=== PATIENT | male | born 1940 | race Caucasian/White ===

== ENCOUNTER → 2016-06-24 | Outpatient (CLI) | payer BC ==
[~2016-06-24] MED LIST: ASPI-435 PO; BRIM0.2S OPB; CHOL100027 PO; ENAL5TAB PO; OMEP20TA PO; PSYL58.69 PO; SIMV40TA4 PO; TRIATAB3 PO; ZOLP10TA PO
[2016-06-24 12:59] LABS: HEMATOCRIT 48.4 % (42-52); MEAN CELL VOLUME 95.1 fL (80-100); MEAN CORPUSCULAR HEMOGLOBIN 31.4 pg (25-34); MEAN CORPUSCULAR HGB CONC 33.1 g/dl (32-36); MEAN PLATELET VOLUME 10.6 fL (7.4-10.4); PLATELET COUNT 193 K/uL (130-400); RED BLOOD COUNT 5.09 M/uL (4.7-6.1); WHITE BLOOD COUNT 7.42 K/uL (4.8-10.8)
[2016-06-24 13:12] LABS: URINE APPEARANCE CLOUDY (CLEAR); URINE BILIRUBIN NEG (NEG); URINE COLOR YELLOW; URINE EPITHELIAL CELL AUTO >30 /lpf (0-5); URINE NITRITE NEG (NEG); URINE SPECIFIC GRAVITY 1.029 (1.000-1.030); UROBILINOGEN NEG (NEG)
[2016-06-24 13:21] LABS: MANUAL MICROSCOPIC REQUIRED? NO; REVIEW REQ? NO
[2016-06-24 13:26] LABS: BLOOD UREA NITROGEN 27 mg/dl (7-18); BUN/CREATININE RATIO 18.3 (10-20); CALCIUM 9.3 mg/dl (8.5-10.1); CARBON DIOXIDE 24 mmol/L (21-32); CHLORIDE 104 mmol/L (98-107); GLUCOSE 108 mg/dl (70-99); SODIUM 138 mmol/L (136-145)
[2016-06-24 13:28] LABS: URINE PROTIEN/CREAT RATIO 0.1 (0-0.2); URINE TOTAL PROTEIN 30.2 mg/dl (0-11.9)
[2016-06-24 13:33] LABS: CHOLESTEROL/HDL RATIO 3.6
== END | disposition home or self-care (01) ==
LOC: C.LABPVFM 07:19
PROVIDERS: ATTEND Family Medicine
DX: E78.5 Hyperlipidemia, unspecified (principal); I12.9 Hypertensive chronic kidney disease with stage 1 through stage 4 chronic kidney disease, or unspecified chronic kidney disease; N18.3 Chronic kidney disease, stage 3 (moderate); E55.9 Vitamin D deficiency, unspecified

== ENCOUNTER → 2016-09-23 | Outpatient (CLI) | payer BC | END | disposition home or self-care (01) | LOC: C.LABPVFM 07:18 | PROVIDERS: ATTEND Urology | DX: R97.20 Elevated prostate specific antigen [PSA] (principal) ==

== ENCOUNTER → 2017-05-19 | Outpatient (CLI) | payer BC ==
[~2017-05-19] MED LIST changes: +BIMA0.01 OPB; +LPT/40 PO; +MXZC25 PO; +PSYL58.636 PO; +ZOLP5TAB PO
[2017-05-19 15:39] LABS: ALBUMIN 3.9 gm/dl (3.4-5.0); ALKALINE PHOSPHATASE 74 U/L (45-117); ALT/SGPT 46 U/L (12-78); AST/SGOT 27 U/L (15-37); BLOOD UREA NITROGEN 26 mg/dl (7-18); CALCIUM 9.4 mg/dl (8.5-10.1); CARBON DIOXIDE 30 mmol/L (21-32); CHOLESTEROL 160 mg/dl (0-200); CREATININE 1.41 mg/dl (0.60-1.40); GLUCOSE 105 mg/dl (70-99); LDL CHOLESTEROL CALCULATED 91 mg/dl; POTASSIUM 4.4 mmol/L (3.5-5.1); SODIUM 136 mmol/L (136-145)
== END | disposition home or self-care (01) ==
LOC: C.LABPVFM 10:06
PROVIDERS: ATTEND Family Medicine
DX: I12.9 Hypertensive chronic kidney disease with stage 1 through stage 4 chronic kidney disease, or unspecified chronic kidney disease (principal); E78.00 Pure hypercholesterolemia, unspecified; N18.2 Chronic kidney disease, stage 2 (mild)

== ENCOUNTER → 2017-07-05 | Outpatient (CLI) | payer BC ==
[~2017-07-05] MED LIST changes: -PSYL58.69 PO; -SIMV40TA4 PO; -TRIATAB3 PO; -ZOLP10TA PO
[2017-07-05 12:23] LABS: HEMATOCRIT 50.2 % (42-52); HEMOGLOBIN 16.2 g/dL (14.0-18.0); MEAN CELL VOLUME 98.4 fL (80-100); MEAN CORPUSCULAR HEMOGLOBIN 31.8 pg (25-34); MEAN CORPUSCULAR HGB CONC 32.3 g/dl (32-36); MEAN PLATELET VOLUME 10.5 fL (7.4-10.4); PLATELET COUNT 210 K/uL (130-400); RED CELL DISTRIBUTION WIDTH CV 14.5 % (11.5-14.5); RED CELL DISTRIBUTION WIDTH SD 52.6 fL (36.4-46.3); WHITE BLOOD COUNT 6.52 K/uL (4.8-10.8)
[2017-07-05 13:34] LABS: ALBUMIN 3.7 gm/dl (3.4-5.0); BLOOD UREA NITROGEN 23 mg/dl (7-18); CALCIUM 9.3 mg/dl (8.5-10.1); CARBON DIOXIDE 27 mmol/L (21-32); CREATININE 1.42 mg/dl (0.60-1.40); GLUCOSE 108 mg/dl (70-99); PHOSPHORUS 2.7 mg/dl (2.5-4.9); POTASSIUM 4.1 mmol/L (3.5-5.1); SODIUM 136 mmol/L (136-145)
== END | disposition home or self-care (01) ==
LOC: C.LABPVFM 07:37
PROVIDERS: ATTEND Internal Medicine Nephrology
DX: I10 Essential (primary) hypertension (principal); N18.3 Chronic kidney disease, stage 3 (moderate); R31.29 Other microscopic hematuria; E55.9 Vitamin D deficiency, unspecified

== ENCOUNTER → 2017-07-13 | Day surgery (SDC) | payer BC ==
[2017-05-31 10:31] VITALS: Ht 179.1 cm; Wt 84.1 kg
[~2017-07-13] VITALS: Ht 179.1 cm; Wt 84.1 kg
[~2017-07-13] MED LIST changes: +500ML BSS 0.3ML EPI 1:1000PF IRRIG ONE; +ACETAMINOPHEN 325 MG TAB PO PRN; +AMVISC PLAIN 0.8ML SYRINGE INT OCU ONE; +AMVISC PLUS 0.8ML SYRINGE INT OCU ONE; +ATROPINE SULFATE 0.1 MG/ML 5ML SYR IV PRN; +BSS FLUSH ONE; +EpHEDrine SULFATE INJ 50 MG/ML AMP IV PRN; +EpINEphrine INJ 1MG/ML AMP 1 MG/ML AMP ONE; +LACTATED RINGER'S 1000ML 500 ML IV SCH; +LIDOCAINE 3.5% OPH GEL PER APPLICATION CHARGE ONE; +LIDOCAINE HCL 1% MPF 2 ML VIAL ONE; +MIDAZOLAM HCL 1 MG/ML 2ML VIAL ONE; +OCUCOAT 1 ML SOLN IO ONE; +ONDANSETRON INJ 2 MG/ML 2 ML VIAL IV PRN; +POVIDONE-IODINE OP SOLN 30 ML BTL ONE; +PROPARACAINE 0.5% OP SOLN PER DROP CHARGE OPL SCH; +TOBRAMYCIN/DEXAMETHASONE OPH OINT PER APPLN CHARGE ONE
[2017-07-13] MEDS: PHENYLEPHRINE HCL 2.5% OP SOLN PER DROP CHARGE OPL SCH ×2 (07:49→07:54)
[2017-07-13] MEDS: TROPICAMIDE 1% OP SOLN PER DROP CHARGE OPL SCH ×2 (07:50→07:55)
[2017-07-13] MEDS: CYCLOPENTOLATE HCL 1% OP SOLN PER DROP CHARGE OPL SCH ×2 (07:51→07:56)
[2017-07-13] MEDS: KETOROLAC 0.5% OP SOLN PER DROP CHARGE OPL SCH ×2 (07:52→07:57)
[2017-07-13] MEDS: GATIFLOXACIN OP SOLN PER DROP CHARGE OPL SCH ×2 (07:53→08:03)
--- NOTE | 2017-07-13 08:24 | History & Physical Bridge - SC ---
H&P Re-Evaluation Bridge Note: I have examined the patient, reviewed the History & Physical and in the interval since the performance of the History & Physical I have noted the following changes of clinical significance: No changes noted
--- NOTE | 2017-07-13 09:02 | [facility] Operative Report ---
Operative Report Date of Service Jul 13, 2017. Operative Report 1. PREOPERATIVE DIAGNOSIS: Cataract of the left eye. 2. POSTOPERATIVE DIAGNOSIS: Same. 3. PROCEDURE: Phacoemulsification with intraocular lens implantation of the left eye. SURGEON: Dr. Oscar Muñiz. ANESTHESIA: Topical Lidocaine gel, 1% Non- Preserved intracameral Lidocaine, and monitored intravenous sedation. INDICATIONS FOR THE PROCEDURE: The patient is a 77 - year-old male with a history of cataract of the left eye causing significant visual impairment. The details of the proposed procedure were explained to the patient who asked appropriate questions and following discussion of all risks, benefits and alternatives agreed to have the procedure done. Patient had corneal astigmatism and therefore elected to have a toric lens placed. 4. OPERATION AND FINDINGS: DESCRIPTION OF PROCEDURE: After informed consent was obtained, the patient was placed in an upright position and the cornea was marked at 173 degrees using the [employer] corneal marking tool. The patient was brought to the Operating Room at the [facility]. The patient was placed in a supine position and then the left eye was prepped and draped in the usual sterile fashion for intraocular surgery. A drop of topical Lidocaine gel was placed in the operative eye. A wire lid speculum was then placed in the fornices. A corneal paracentesis was then created temporally. The Non-Preserved Lidocaine was then instilled into the anterior chamber. The anterior chamber was then pressurized with viscoelastic. A 2.0 mm clear corneal incision was then created temporally. A cystotome was inserted into the anterior chamber and used to create a tear in the anterior lens capsule. This capsular tear was then used to create a small flap and the flap was dragged in a counterclockwise direction in order to create a continuous curvilinear capsulorrhexis. Hydrodissection was accomplished with balanced salt solution. Phacoemulsification of the lens nucleus was then performed in a standard divide- and-conquer technique. The phaco time was 17 seconds with an average power of 10 %. The remaining cortical material was removed using irrigation aspiration. The capsular bag was then filled with viscoelastic. A Renzo [id number] +13.5 diopters lens was then loaded into the injector and injected into the capsular bag. The lens was aligned with the previously made corneal meng. The remaining viscoelastic was removed with the irrigation aspiration handpiece. The wound was hydrated and then checked and found to be watertight. The intraocular pressure was checked and found to be adequate. The wire lid speculum was removed and the patient's face was cleaned and dried. TobraDex ointment was placed in the inferior fornix. The patient was discharged to the Recovery Room having tolerated the procedure well. There were no complications. The patient will be seen tomorrow in the office for follow-up. I attest to the content of the Intraoperative Record and any orders documented therein. Any exceptions are noted below.
--- NOTE | 2017-07-13 09:03 | Discharge Instructions-SurgCtr ---
Discharge Instructions Date of Service Jul 13, 2017. Visit Reason for Visit: Cataract Left Eye Discharge Discharge Diagnosis / Problem: cataract Discharge Goals Goal(s): Improve function Activity Recommendations Activity Limitations: per Instructions/Follow-up section Anesthesia . Post Anesthesia Instructions: If you have had General Anesthesia or IV Sedation: * Do not drive today. * Resume driving when surgeon permits. * Do not make important decisions or sign legal documents today. * Call surgeon for: 1. Temperature elevations greater than 101 degrees F. 2. Uncontrollable pain. 3. Excessive bleeding. 4. Persistent nausea and vomiting. 5. Medication intolerance (nausea, vomiting or rash). * For nausea and vomiting use only clear liquids such as: tea, soda, bouillon until nausea subsides, then gradually increase diet as tolerated. * If you have any concerns or questions, call your surgeon's office. If physician is unavailable and it is an emergency, call 911 or go to the nearest emergency room. . Diet Recommendations Home Diet: resume previous diet Procedures Procedures Performed: Left Cataract Phacoemulsification With Intraocular Lens Implant Pending Studies Studies pending at discharge: no Medical Emergencies . Who to Call and When: Medical Emergencies: If at any time you feel your situation is an emergency, please call 911 immediately. . Non-Emergent Contact Non-Emergency issues call your: Mix Technician . . "Provider Documentation" section prepared by Oscar Muñiz. .
[2017-07-13 09:05] VITALS: TEMP 36.8
[2017-07-13 09:23] VITALS: BP 129/69; PULSE 55; O2SAT 94
--- NOTE | 2017-07-13 09:23 | Anesthesia Progress Nt - [facility] ---
Anesthesia Post Op Note Date & Time Jul 13, 2017 at 09:23 Vital Signs Pain Intensity: 0 Vital Signs Past 12 Hours Date Time Temp Pulse Resp B/P (MAP) Pulse Ox O2 Delivery O2 Flow Rate FiO2 07/13/17 09:05 36.8 45 14 144/68 (93) 96 Room Air 07/13/17 07:40 37.0 48 22 159/84 (109) 97 Room Air Notes Mental Status: alert / awake / arousable, participated in evaluation Pt Amnestic to Procedure: Yes Nausea / Vomiting: adequately controlled Pain: adequately controlled Airway Patency, RR, SpO2: stable & adequate BP & HR: stable & adequate Hydration State: stable & adequate Anesthetic Complications: no major complications apparent
== END | disposition home or self-care (01) ==
LOC: X.SURG 07:13
PROVIDERS: ATTEND Ophthalmology
DX: H26.9 Unspecified cataract (principal); K21.9 Gastro-esophageal reflux disease without esophagitis; G47.30 Sleep apnea, unspecified; Z88.2 Allergy status to sulfonamides; Z88.0 Allergy status to penicillin

== ENCOUNTER → 2017-07-27 | Day surgery (SDC) | payer BC ==
[2017-07-20 11:07] VITALS: Ht 179.1 cm; Wt 84.1 kg
[~2017-07-27] VITALS: Ht 179.1 cm; Wt 84.1 kg
[~2017-07-27] MED LIST changes: -ONDANSETRON INJ 2 MG/ML 2 ML VIAL IV PRN; -PROPARACAINE 0.5% OP SOLN PER DROP CHARGE OPL SCH; +PROPARACAINE 0.5% OP SOLN PER DROP CHARGE OPR SCH
[2017-07-27] MEDS: PHENYLEPHRINE HCL 2.5% OP SOLN PER DROP CHARGE OPR SCH ×2 (10:30→10:35)
[2017-07-27] MEDS: TROPICAMIDE 1% OP SOLN PER DROP CHARGE OPR SCH ×2 (10:31→10:36)
[2017-07-27] MEDS: CYCLOPENTOLATE HCL 1% OP SOLN PER DROP CHARGE OPR SCH ×2 (10:32→10:37)
[2017-07-27] MEDS: KETOROLAC 0.5% OP SOLN PER DROP CHARGE OPR SCH ×2 (10:33→10:38)
[2017-07-27] MEDS: GATIFLOXACIN OP SOLN PER DROP CHARGE OPR SCH ×2 (10:34→10:44)
--- NOTE | 2017-07-27 11:29 | [facility] Operative Report ---
Operative Report Date of Service Jul 27, 2017. Operative Report 1. PREOPERATIVE DIAGNOSIS: Cataract of the right eye. 2. POSTOPERATIVE DIAGNOSIS: Same. 3. PROCEDURE: Phacoemulsification with intraocular lens implantation of the right eye. SURGEON: Dr. Oscar Muñiz. ANESTHESIA: Topical Lidocaine gel, 1% Non- Preserved intracameral Lidocaine, and monitored intravenous sedation. INDICATIONS FOR THE PROCEDURE: The patient is a 77 - year-old male with a history of cataract of the right eye causing significant visual impairment. The details of the proposed procedure were explained to the patient who asked appropriate questions and following discussion of all risks, benefits and alternatives agreed to have the procedure done. Patient had corneal astigmatism and therefore elected to have a toric lens placed. 4. OPERATION AND FINDINGS: DESCRIPTION OF PROCEDURE: After informed consent was obtained, the patient was placed in an upright position and the cornea was marked at 003 degrees using the [employer] corneal marking tool. The patient was brought to the Operating Room at the [facility]. The patient was placed in a supine position and then the right eye was prepped and draped in the usual sterile fashion for intraocular surgery. A drop of topical Lidocaine gel was placed in the operative eye. A wire lid speculum was then placed in the fornices. A corneal paracentesis was then created temporally. The Non-Preserved Lidocaine was then instilled into the anterior chamber. The anterior chamber was then pressurized with viscoelastic. A 2.0 mm clear corneal incision was then created temporally. A cystotome was inserted into the anterior chamber and used to create a tear in the anterior lens capsule. This capsular tear was then used to create a small flap and the flap was dragged in a counterclockwise direction in order to create a continuous curvilinear capsulorrhexis. Hydrodissection was accomplished with balanced salt solution. Phacoemulsification of the lens nucleus was then performed in a standard divide- and-conquer technique. The phaco time was 20 seconds with an average power of 12 %. The remaining cortical material was removed using irrigation aspiration. The capsular bag was then filled with viscoelastic. A Renzo [id number] +13.5 diopters lens was then loaded into the injector and injected into the capsular bag. The remaining viscoelastic was removed with the irrigation aspiration handpiece. The lens was aligned with the previously made corneal meng. The wound was hydrated and then checked and found to be watertight. The intraocular pressure was checked and found to be adequate. The wire lid speculum was removed and the patient's face was cleaned and dried. TobraDex ointment was placed in the inferior fornix. The patient was discharged to the Recovery Room having tolerated the procedure well. There were no complications. The patient will be seen tomorrow in the office for follow-up. I attest to the content of the Intraoperative Record and any orders documented therein. Any exceptions are noted below.
--- NOTE | 2017-07-27 11:30 | Discharge Instructions-SurgCtr ---
Discharge Instructions Date of Service Jul 27, 2017. Visit Reason for Visit: Cataract Right Eye Discharge Discharge Diagnosis / Problem: cataract Discharge Goals Goal(s): Improve function Activity Recommendations Activity Limitations: per Instructions/Follow-up section Anesthesia . Post Anesthesia Instructions: If you have had General Anesthesia or IV Sedation: * Do not drive today. * Resume driving when surgeon permits. * Do not make important decisions or sign legal documents today. * Call surgeon for: 1. Temperature elevations greater than 101 degrees F. 2. Uncontrollable pain. 3. Excessive bleeding. 4. Persistent nausea and vomiting. 5. Medication intolerance (nausea, vomiting or rash). * For nausea and vomiting use only clear liquids such as: tea, soda, bouillon until nausea subsides, then gradually increase diet as tolerated. * If you have any concerns or questions, call your surgeon's office. If physician is unavailable and it is an emergency, call 911 or go to the nearest emergency room. . Diet Recommendations Home Diet: resume previous diet Procedures Procedures Performed: Right Cataract Phacoemulsification With Intraocular Lens Implant; Toric Lens Pending Studies Studies pending at discharge: no Medical Emergencies . Who to Call and When: Medical Emergencies: If at any time you feel your situation is an emergency, please call 911 immediately. . Non-Emergent Contact Non-Emergency issues call your: Phlebotomy Director . . "Provider Documentation" section prepared by Oscar Muñiz. .
[2017-07-27 11:32] VITALS: TEMP 36.8
--- NOTE | 2017-07-27 11:43 | Anesthesia Progress Nt - [facility] ---
Anesthesia Post Op Note Date & Time Jul 27, 2017 at 11:42 Vital Signs Vital Signs Past 12 Hours Date Time Temp Pulse Resp B/P (MAP) Pulse Ox O2 Delivery O2 Flow Rate FiO2 07/27/17 11:32 36.8 59 16 144/69 (94) 95 Room Air 07/27/17 10:40 168/64 (98) 07/27/17 10:21 36.6 51 20 181/88 (119) 95 Room Air Notes Mental Status: alert / awake / arousable, participated in evaluation Pt Amnestic to Procedure: Yes Nausea / Vomiting: adequately controlled Pain: adequately controlled Airway Patency, RR, SpO2: stable & adequate BP & HR: stable & adequate Hydration State: stable & adequate Anesthetic Complications: no major complications apparent
[2017-07-27 11:56] VITALS: BP 150/73; PULSE 48; O2SAT 98
== END | disposition home or self-care (01) ==
LOC: X.SURG 09:45
PROVIDERS: ATTEND Ophthalmology
DX: H26.9 Unspecified cataract (principal); I10 Essential (primary) hypertension; E78.00 Pure hypercholesterolemia, unspecified; E78.5 Hyperlipidemia, unspecified; G47.33 Obstructive sleep apnea (adult) (pediatric); K21.9 Gastro-esophageal reflux disease without esophagitis; N18.3 Chronic kidney disease, stage 3 (moderate); N40.0 Benign prostatic hyperplasia without lower urinary tract symptoms; Z88.2 Allergy status to sulfonamides; Z79.82 Long term (current) use of aspirin

== ENCOUNTER → 2017-08-19 | Outpatient (CLI) | payer BC ==
[~2017-08-19] MED LIST changes: -500ML BSS 0.3ML EPI 1:1000PF IRRIG ONE; -ACETAMINOPHEN 325 MG TAB PO PRN; -AMVISC PLAIN 0.8ML SYRINGE INT OCU ONE; -AMVISC PLUS 0.8ML SYRINGE INT OCU ONE; -ATROPINE SULFATE 0.1 MG/ML 5ML SYR IV PRN; -BSS FLUSH ONE; -EpHEDrine SULFATE INJ 50 MG/ML AMP IV PRN; -EpINEphrine INJ 1MG/ML AMP 1 MG/ML AMP ONE; -LACTATED RINGER'S 1000ML 500 ML IV SCH; -LIDOCAINE 3.5% OPH GEL PER APPLICATION CHARGE ONE; -LIDOCAINE HCL 1% MPF 2 ML VIAL ONE; -MIDAZOLAM HCL 1 MG/ML 2ML VIAL ONE; -OCUCOAT 1 ML SOLN IO ONE; -POVIDONE-IODINE OP SOLN 30 ML BTL ONE; -PROPARACAINE 0.5% OP SOLN PER DROP CHARGE OPR SCH; -TOBRAMYCIN/DEXAMETHASONE OPH OINT PER APPLN CHARGE ONE
== END | disposition home or self-care (01) ==
LOC: C.LAB1850 09:41
PROVIDERS: ATTEND Physician Assistant
DX: G25.81 Restless legs syndrome (principal)

== ENCOUNTER → 2017-08-20 | Outpatient (CLI) | payer BC ==
[2017-08-20 17:38] LABS: BASO % 0.4 %; BASO ABS # 0.03 K/uL (0-0.2); EOS % 2.3 %; EOS ABS # 0.16 K/uL (0-0.5); HEMOGLOBIN 16.5 g/dL (14.0-18.0); IG# 0.02 K/uL (0.00-0.02); LYMPH % 31.6 %; LYMPH ABS # 2.19 K/uL (1.2-3.4); MEAN CELL VOLUME 96.5 fL (80-100); MEAN CORPUSCULAR HEMOGLOBIN 32.5 pg (25-34); MEAN CORPUSCULAR HGB CONC 33.7 g/dl (32-36); MEAN PLATELET VOLUME 10.3 fL (7.4-10.4); MONO % 10.5 %; MONO ABS # 0.73 K/uL (0.11-0.59); NEUT % 54.9 %; NEUT ABS # 3.81 K/uL (1.4-6.5); PLATELET COUNT 228 K/uL (130-400); RED CELL DISTRIBUTION WIDTH CV 14.6 % (11.5-14.5); RED CELL DISTRIBUTION WIDTH SD 51.9 fL (36.4-46.3); WHITE BLOOD COUNT 6.94 K/uL (4.8-10.8)
[2017-08-20 18:14] LABS: ALBUMIN 3.9 gm/dl (3.4-5.0); ALT/SGPT 42 U/L (12-78); AST/SGOT 27 U/L (15-37); BLOOD UREA NITROGEN 24 mg/dl (7-18); CALCIUM 9.5 mg/dl (8.5-10.1); CARBON DIOXIDE 26 mmol/L (21-32); CREATININE 1.39 mg/dl (0.60-1.40); GLUCOSE 94 mg/dl (70-99); POTASSIUM 4.4 mmol/L (3.5-5.1); SODIUM 134 mmol/L (136-145)
[2017-08-20 18:20] LABS: ALKALINE PHOSPHATASE 70 U/L (45-117); TOTAL PROTEIN 7.8 gm/dl (6.4-8.2); TRANSFERRIN 232 mg/dl (200-360)
== END | disposition home or self-care (01) ==
LOC: C.LABPVFM 13:52
PROVIDERS: ATTEND Family Medicine
DX: R79.89 Other specified abnormal findings of blood chemistry (principal)

== ENCOUNTER → 2017-08-30 | Outpatient (CLI) | payer BC | END | disposition home or self-care (01) | LOC: C.LABPVFM 09:00 | PROVIDERS: ATTEND Family Medicine | DX: R79.89 Other specified abnormal findings of blood chemistry (principal) ==

== ENCOUNTER → 2017-09-14 | Outpatient (CLI) | payer BC ==
--- NOTE | 2017-09-14 07:49 | DIAGNOSTIC IMAGING REPORT ---
ABDOMINAL ULTRASOUND, RIGHT UPPER QUADRANT HISTORY: Elevated ferritin. COMPARISON: Abdominal ultrasound September 17, 2011 and renal ultrasound March 28, 2013. FINDINGS: Liver morphology is normal. The liver is not cirrhotic by sonography. No hepatic lesions are identified although sensitivity is diminished due to suboptimal penetration. The gallbladder is not visualized and may be surgically absent. There is no biliary ductal dilatation. The pancreas is largely secured by overlying bowel gas. IMPRESSION: 1. Normal liver morphology without sonographic evidence of cirrhosis. 2. Nonvisualization of the gallbladder, possibly surgically absent. No biliary ductal dilatation. 3. Largely obscured pancreas. Electronically signed by: Marcelino Regan M.D. 09/14/2017 7:48 AM Dictated Date/Time: 09/14/2017 7:45 AM
== END | disposition home or self-care (01) ==
LOC: C.ULTR 07:21
PROVIDERS: ATTEND Internal Medicine Hematology & Oncology
DX: R77.8 Other specified abnormalities of plasma proteins (principal); R10.11 Right upper quadrant pain

== ENCOUNTER → 2017-09-23 | Outpatient (CLI) | payer BC ==
[2017-09-23 13:00] LABS: ALBUMIN 3.6 gm/dl (3.4-5.0); ALT/SGPT 51 U/L (12-78); AST/SGOT 39 U/L (15-37); BLOOD UREA NITROGEN 20 mg/dl (7-18); CALCIUM 8.7 mg/dl (8.5-10.1); CARBON DIOXIDE 28 mmol/L (21-32); CREATININE 1.38 mg/dl (0.60-1.40); GLUCOSE 116 mg/dl (70-99); POTASSIUM 4.2 mmol/L (3.5-5.1); SODIUM 140 mmol/L (136-145)
[2017-09-23 13:03] LABS: ALKALINE PHOSPHATASE 71 U/L (45-117); CHOLESTEROL 133 mg/dl (0-200); LDL CHOLESTEROL CALCULATED 73 mg/dl; TOTAL PROTEIN 7.4 gm/dl (6.4-8.2)
== END | disposition home or self-care (01) ==
LOC: C.LABPVFM 07:37
PROVIDERS: ATTEND Family Medicine
DX: N40.0 Benign prostatic hyperplasia without lower urinary tract symptoms (principal); I10 Essential (primary) hypertension; E78.00 Pure hypercholesterolemia, unspecified

== ENCOUNTER → 2017-10-03 | Outpatient (CLI) | payer BC ==
--- NOTE | 2017-10-04 05:45 | PAP/PSG TECHNICIAN REPORT ---
[facility] Leaf Sticker Polysomnogram Report Study name: None Report date: 10/04/2017 Study date: 10/03/2017 Referring Physician: Chel Regan PA-C Name: CISCO CASTRO Interpreting Physician: Herbie Pathak D.O. Date of : 1940 Leaf Sticker: Beth Laguna [facility]. Sex: Male Age: 77 StudyType: PSG PAP Weight: 195 lbs Height: 77 years, Height 5' 11" BMI: 27.19 Medications: Omeprazole 20 mg, Combigan 0.2-0.5%, Lumigan, Aspirin 81 mg, Atorvastatin Calcium 40 mg, Enalapril Maleate 5 mg, Triamterene-HCTZ 37.5-25 mg, Zolpidem 5 mg, Metamucil, Vitamin D Patient History 77 yr. old male here for a CPAP titration study. Patient is in the need of a new unit. His last study was done on over 6 years ago. Parameters Monitored NPSG: E1-M2, E2-M1, Fp1-M2, Fp2-M1, F3-M2, F4-M2, F4-M1, C3-M2, C4-M2, C4-M1, O1-M2, O2-M2, O2-M1, T3-M2, T4-M1, P3-M2, P4-M1, CHIN1, CHIN2, HR, EKG, Legs, PFLOW, SNOR, FLOW, CFLOW, Tidal Volume, THOR, ABDO, SpO2, PLTH, CPRESS, ETCO2 Wave, ETCO2, pH Sleep Architecture Sleep Stages Time at Lights Off 10:02:24 PM STAGES Time (min.) TST (%) Time at Lights On 5:41:24 AM Wake 76.0 -- Total Recording Time (TRT) 459.50 min. N1 41.5 11 Total Sleep Period (TSP) 439.0 min. N2 238.5 62 Total Sleep Time (TST) 382.5min. N3 20.0 5 Awake Time 76.0 min. REM 82.5 22 Wake after Sleep Onset 56.5 min. Sleep Efficiency (SE) 83 % Sleep Onset Latency (MARIAELENA) 20.0 min. Number of Stage 1 Shifts None Awakenings 24 Stage Changes 140 Number of REM periods 13 REM 82.5 22 REM Latency 84.5 min. NREM 300.0 78 Body Position Analysis Supine Right Left Side Prone Vertical Total Sleep Time (min.) 66.5 76.6 260.5 337.14 0.0 0.0 Total Sleep Time (%) 12% 20% 68% 88 0% N/A% Total Sleep Time REM (min.) 1.0 17.5 64.0 None 0.0 0.0 Total Sleep Time NREM (min.) 44.4 59.1 196.5 None 0.0 0.0 Intermittent Wake (min.) 21.1 10.0 44.8 None 0.0 0.0 Total Sleep Period (%) 11% None None None None None Arousals Myoclonus (PLM) * Events Count Index Events Count Index Spontaneous 13 2 Events Awake (PLMW) 46 36.3 Respiratory 13 2.0 Events Asleep w/ Arousal (PLMA) 18 2.8 PLM 17 3 Events Asleep w/o Arousal (PLMS) 30 4.7 Snoring 15 2 Total Asleep 48 7.5 Total 57 9 Total 94 12 Respiratory Analysis * CA OA MA CH H RERA Total Count 0 8 0 0 29 2 37 Index 0.0 1.3 0.0 0 4.5 0 6.1 Mean Duration 0.0 16.5 0.0 0.00 32.7 32.8 29.4 Longest Duration 0.0 30.1 0.0 0.00 0.0 47.6 76.0 Respiratory Event Summary Total Supine ~Supine Right Left Prone REM NREM Apneas Count 8 8 0 0 0 N/A 0 8 Index 1.3 11 0 0.0 0.0 N/A 0 2 Hypopneas (4% Desat) Count 29 14 15 0 15 N/A 7 22 Index 4.5 18.5 3 0.0 3.5 N/A 5.1 4.4 Apneas & All Hypopneas Count 37 22 15 0 15 N/A 7 30 Index 5.8 29 3 0 3 N/A 5.1 6.0 Respiratory Events (Extension Course Counselor+All Hyp+RERA) Count 37 22 17 0 17 N/A 7 30 Index 6.1 29 3 0.0 3.9 N/A 5.1 6.4 Respiratory Related Arousal Count 13 22 4 0 4 N/A 0 13 Index 2.0 12 1 0 1 N/A 0 3 Snoring Analysis Supine Right Left Prone REM NREM Total Snore duration 13.7 min Snores count 57 31 638 N/A 9 717 726 Snore mean duration 1.1 Sec Snores index 75 24 147 N/A 6.5 143.4 113.9 TST with snoring (%) 3.6% Desaturation Event Summary: Minimum %SpO2 Event Count Mean/Min/Max Duration(sec.) Desaturation Index % Time In Bed > 90 29 33.8 / 10.5 / 60.0 5.4 70.9 86 - 90 9 19.0 / 10.5 / 31.3 4.1 29.1 81 - 85 0 N/A 0.0 0.0 76 - 80 0 N/A 0.0 0.0 71 - 75 0 N/A 0.0 0.0 66 - 70 0 N/A 0.0 0.0 61 - 65 0 N/A 0.0 0.0 56 - 60 0 N/A 0.0 0.0 51 - 55 0 N/A 0.0 0.0 < 50 0 N/A 0.0 0.0 Total REM NREM Awake <50% 0.0 min. 0.0 min. 0.0 min. 0.0 min. 51 - 60% 0.0 min. 0.0 min. 0.0 min. 0.0 min. 61 - 70% 0.0 min. 0.0 min. 0.0 min. 0.0 min. 71 - 80% 0.0 min. 0.0 min. 0.0 min. 0.0 min. 81 - 90% 131.1 min. 24.6 min. 81.3 min. 25.2 min. 91 - 100% 319.3 min. 57.9 min. 216.2 min. 45.2 min. Average 91 91 91 91 Minimum SpO2 83 86 86 83 Desaturation Event Index 3.9 2.9 4.2 3.9 # Desat. Events below 89% 10 1 8 1 Time(%) with Saturation below 89% 2.5 0.3 1.7 0.5 Time(min.) with Saturation below 89% 11.5 1.5 7.5 2.4 Time (mins) REM (mins) NREM (mins) % of TST SpO2 Below 90% 22 4 N18 9.1 SpO2 Below 88% 3 0 0 0 Heart Rate Analysis Min (bpm) Max (bpm) Average (bpm) Awake 37 180 52 NREM 33 127 41 REM 30 57 41 Overall 30 127 41 Supplemental O2 Values Minimum O2 level: None Value Start Time End Time Leaf Sticker Comments Mr. Castro slept in the right, left, and supine positions. Cardiac arrhythmia and bradycardia along with PLMs noted. No bruxism noted. CPAP was initiated at +5 CMH2O room air and up-titrated to a level of +[id number] Cflex 1. Mr. Castro used his own ResMed Quattro FX full face mask during titration. Mr. Castro awoke to use the restroom once during the night. Mr. Castro stated, that was a fairly normal night. The final report will be interpreted and signed by a sleep physician. The completed physician report will then be placed in the patient medical record. Therapy Event: Therapy (cm H20) 5 6 7 8 9 10 11 12 Total Time at Pressure (min.) 29.5 14.1 25.3 82.0 59.2 138.4 75.2 34.6 TST at Pressure (min.) 9.7 10.1 25.3 67.5 33.2 130.9 72.7 33.1 # Periods 1 1 1 1 1 1 1 1 Sleep Onset (min.) 19.8 0.0 0.0 0.0 0.0 0.0 0.0 0.0 REM Onset (min.) N/A N/A N/A 35.4 25.4 33.2 21.3 0.0 Sleep Efficiency % 32 71 100 82 56 94 96 95 Wakefulness (%) 67.1 28.4 0.0 17.7 43.9 5.4 3.3 4.3 Wakefulness (min.) 19.8 4.0 0.0 14.5 26.0 7.5 2.5 1.5 NREM 1 (%) 8.5 9.2 4.8 14.6 7.2 9.2 8.0 4.3 NREM 1 (min.) 2.5 1.3 1.2 12.0 4.3 12.7 6.0 1.5 NREM 2 (%) 24.4 62.5 95.2 67.1 37.0 51.4 39.0 60.6 NREM 2 (min.) 7.2 8.8 24.1 55.0 21.9 71.2 29.3 21.0 NREM 3 (%) 0.0 0.0 0.0 0.0 2.5 11.2 3.3 1.4 NREM 3 (min.) 0.0 0.0 0.0 0.0 1.5 15.5 2.5 0.5 REM (%) 0.0 0.0 0.0 0.6 9.3 22.8 46.4 29.2 REM (min.) 0.0 0.0 0.0 0.5 5.5 31.5 34.9 10.1 # Arousals 3 3 6 11 6 14 11 3 Arousal Index 18.6 17.8 14.2 9.8 10.9 6.4 9.1 5.4 # Snore 13 32 123 317 206 22 13 0 Snore Index 80.5 190.0 291.9 281.6 372.7 10.1 10.7 0.0 AHI 24.8 71.2 2.4 0.0 18.1 2.3 4.1 0.0 AHI Supine 24.8 77.3 N/A N/A N/A 63.4 5.3 N/A AHI Non-Supine N/A 0.0 2.4 0.0 18.1 0.5 3.6 0.0 NREM AHI 24.8 71.2 2.4 0.0 15.2 2.4 3.2 0.0 REM AHI N/A N/A N/A 0.0 32.7 1.9 5.2 0.0 RDI 24.8 71.2 4.7 0.9 18.1 2.3 4.1 0.0 # Obstructive 3 3 0 0 0 2 0 0 # Central Ap 0 0 0 0 0 0 0 0 # Mixed 0 0 0 0 0 0 0 0 # Hypopneas 1 9 1 0 10 3 5 0 RERAS 0 0 1 1 0 0 0 0 Total Respiratory Events 4 12 2 1 10 5 5 0 Time Below SpO2 89.00% (min.) 3.2 2.1 1.8 0.5 1.1 0.4 0.0 0.0 Mean NREM SpO2 (%) 89 90 90 91 92 92 92 91 Mean REM SpO2 (%) N/A N/A N/A 91 92 91 91 Mean Sleep SpO2 (%) 89 90 90 91 92 92 92 91 Min NREM SpO2 (%) 86 87 87 88 89 88 89 90 Min REM SpO2 (%) N/A N/A N/A 89 86 88 89 89 Position Supine (min.) 9.7 9.3 0.0 0.0 0.0 3.8 22.6 0.0 Position Non-supine (min.) 0.0 0.8 25.3 67.5 33.2 127.1 50.1 33.1 LM Index Sleep 0.0 5.9 2.4 6.2 14.5 7.8 8.3 7.2 LM Index NREM 0.0 5.9 2.4 6.3 15.2 6.0 11.1 2.6 LM Index REM N/A N/A N/A 0.0 10.9 13.3 5.2 17.8 Mean Heart Rate (bpm) 46 44 43 41 40 41 41 41 Min Heart Rate (bpm) 43 41 40 36 33 30 36 36
--- NOTE | 2017-10-07 21:47 | POLYSOMNOGRAPH REPORT ---
CLINICAL DATA: The patient is a 77-year-old male who has been on CPAP. He reportedly needs a new CPAP machine, and his insurance required a new CPAP titration study. His BMI is 27.19. SLEEP ARCHITECTURE: The total sleep period was 439 minutes. The total sleep time was 382.5 minutes. The sleep efficiency was mildly reduced to 83%. The sleep latency was 20 minutes. Wake after sleep onset was elevated at 56.5 minutes. The REM latency was normal at 84.5 minutes. There were 3 REM periods during the night. Sleep consisted of stage N1 of 11%, stage N2 of 62%, stage N3 of 5%, stage REM 22%. AROUSAL DATA: The patient had a total of 57 arousals including 13 spontaneous arousals, 13 respiratory arousals, 17 PLM arousals, and 15 snoring arousals. The arousal index was 9. PLM DATA: The patient had 48 periodic limb movements of sleep for a PLM index of 7.5. There were 18 arousals associated with limb movements for a PLM arousal index of 2.8. EKG: The underlying cardiac rhythm was sinus bradycardia. The cardiac rates ranged from 30 to 57 beats per minute. The average heart rate was 41 beats per minute. He did have 2 very brief episodes of 4 beat runs of SVT. The first occurred at 11:39 p.m. during EPOCH 320. The second occurred during EPOCH 928. RESPIRATORY DATA: The patient's nocturnal events were treated with nasal CPAP. He had a total of 37 respiratory events including 8 obstructive apneas, 29 hypopneas, and 2 RERAs. The longest apnea was 30.1 seconds. The mean duration of hypopneas was 32.7 seconds. The apnea/hypopnea index was 5.8 events per hour. At the final pressure of 12 cm, his apnea/hypopnea index was 0. OXIMETRY DATA: The average saturation for the night was 91%. The minimum recorded saturation was 83%, but this was technical in nature. He appears to have very little time with saturations less than 89%, and the minimum is likely 88%. There was a total of 11.5 minutes with saturations less than 89%, but this includes artifactual time when the saturation was not adequately recording. INTEGRATED SPECIALIST COMMENTS: Mr. Castro slept in the right, left, and supine positions. Cardiac arrhythmia and bradycardia along with PLMs noted. No bruxism noted. CPAP was initiated at 5 cm and up titrated to a level of 12 cm with C-Flex 1. The patient used his own ResMed Quattro FX full face mask during titration. He awakened to use the restroom 1 time during the night. He stated that it was a fairly normal night. IMPRESSION: Obstructive sleep apnea, resolved with nasal CPAP at 12 cm. RECOMMENDATIONS: 1. It is advised that the patient's CPAP be set at 12 cm with C-Flex 1. 2. Compliance data should be obtained in 1-2 months for a routine followup. 3. If possible, the patient should avoid sleeping in the supine position. 4. He had minor arrhythmia noted. Advise clinical correlation.
== END | disposition home or self-care (01) ==
LOC: C.NEUR 21:00
PROVIDERS: ATTEND Physician Assistant
DX: G47.30 Sleep apnea, unspecified (principal); G25.81 Restless legs syndrome; G47.00 Insomnia, unspecified; Z79.899 Other long term (current) drug therapy

== ENCOUNTER 2024-07-25 21:51 | Inpatient (IN) ==
[2024-07-25] MEDS: SODIUM CHLORIDE 0.9% 1,000 ML IV ONE (22:57)
[2024-07-25 23:00] LABS: Basophils # (auto) 0.04 K/uL (0.00-0.20); Basophils % (auto) 0.3 %; Eosinophils # (auto) 0.01 K/uL (0.00-0.50); Eosinophils % (auto) 0.1 %; Hematocrit (blood only) 48.2 % (42.0-52.0); Hemoglobin 16.3 g/dl (14.0-18.0); Immature Granulocytes # (auto) 0.04 K/uL (0.01-0.20); Immature Granulocytes % (auto) 0.3 %; Lymphocytes % (auto) 9.3 %; Mean Corpuscular Hemoglobin 31.2 pg (25.0-34.0); Mean Corpuscular Hgb Conc 33.8 g/dL (32.0-36.0); Mean Corpuscular Volume 92.2 fL (80.0-100.0); Mean Platelet Volume 10.3 fL (9.4-12.4); Monocytes # (auto) 1.15 K/uL (0.11-0.59); Monocytes % (auto) 8.3 %; Neutrophils # (auto) 11.38 K/uL (1.40-6.50); Neutrophils % (auto) 81.7 %; Platelet Count 256 K/uL (130-400); RDW Coefficient of Variation 14.2 % (11.5-14.5); RDW Standard Deviation 47.2 fL (36.4-46.3); Red Blood Count 5.23 M/uL (4.70-6.10); White Blood Count 13.92 K/ul (4.8-10.8)
[2024-07-25 23:08] LABS: Base Excess VBG 4.3 mEq/L; HCO3 VBG 30 mmol/L; Oxygen Saturation VBG < 60.0 %; PCO2 VBG 47 mmHg (38-50); PO2 VBG 30 mmHg; pH VBG 7.41 (7.36-7.41)
[2024-07-25 23:38] LABS: Albumin Level 4.3 gm/dl (3.4-5.0); Bilirubin,Total 1.3 mg/dl (0.2-1.0); Calcium 9.5 mg/dl (8.6-10.3); Magnesium 1.2 mg/dl (1.7-2.4); Potassium 3.2 mmol/L (3.5-5.1)
[2024-07-25 23:41] LABS: INR 1.2 (0.9-1.1); Partial Thromboplastin Ratio 0.9; Partial Thromboplastin Time 25 Seconds (21-31); Prothrombin Time 12.7 Seconds (9.0-12.0)
[2024-07-25 23:45] LABS: BUN Creatinine Ratio 19.1 (10-20); Creatinine Clr Calc Pharmacy 50.3 ml/min
--- NOTE | 2024-07-25 23:53 | Emergency Department Note ---
History of Present Illness General Chief complaint: Fall Stated complaint: FALL Time Seen by Provider: 07/25/24 22:24 History of Present Illness This is an 84-year-old male presenting to the emergency department via EMS from home for evaluation of possible fall. Patient was last seen at his baseline Wednesday morning 2 days ago at [facility] with his neighbors. The patient's went out of town later that day, and patient was home by himself. The patient appears to have went to the bathroom in the early hours Wednesday morning, and had a fall/syncopal episode. The patient was not answering his phone for his , who asked the neighbors to check on him this evening. On arrival to the home, neighbors found patient in the bathroom covered in his own urine and acting confused. Patient is not able to answer many questions, and initially he gave his 's name and date of as his own. History is limited from the patient. On initial arrival the patient's identification was unclear. There may be duplicate records in the EMR for this patient. Home Medications Medication Instructions Recorded Confirmed Type aspirin 81 mg tablet,delayed 81 mg PO DAILY 07/25/24 07/25/24 History release atorvastatin 40 mg tablet 40 mg PO PM 07/25/24 07/25/24 History bimatoprost 0.01 % eye drops 1 drp ophthalmic (eye) HS 07/25/24 07/25/24 History brimonidine 0.2 %-timolol 0.5 % 1 drp ophthalmic (eye) BID 07/25/24 07/25/24 History eye drops cholecalciferol (vitamin D3) 25 25 mcg PO QDL 07/25/24 07/25/24 History mcg (1,000 unit) capsule (Vitamin D3) diphenhydramine 25 2 tab PO HS PRN Sleep 07/25/24 07/25/24 History mg-acetaminophen 500 mg tablet (Tylenol PM Extra Strength) enalapril maleate 5 mg tablet 5 mg PO DAILY 07/25/24 07/25/24 History finasteride 5 mg tablet 5 mg PO DAILY 07/25/24 07/25/24 History metformin 500 mg tablet 500 mg PO BID 07/25/24 07/25/24 History omeprazole 20 mg capsule,delayed 20 mg PO QPM 07/25/24 07/25/24 History release psyllium husk 3 gram/5.4 gram oral 1 tsp PO QPM 07/25/24 07/25/24 History powder triamterene 37.5 0.5 tab PO DAILY 07/25/24 07/25/24 History mg-hydrochlorothiazide 25 mg tablet Allergies Allergy/AdvReac Type Severity Reaction Status Date / Time Penicillins Allergy Intermediate SWELLING/RA Verified 07/25/24 23:34 SH Sulfa (Sulfonamide Allergy Intermediate Rash Verified 07/25/24 23:34 Antibiotics) Past Med/Surg History Problem List (Updated 07/26/24 @ 02:58 by Dallas Dowling PA-C) Hypomagnesemia (Acute) Pneumonia (Acute) T2DM (type 2 diabetes mellitus) Elevated troponin (Acute) Hypoxia (Acute) Fall (Acute) Rhabdomyolysis (Acute) Social History Smoking Status: Never smoker Feels Safe at Home: Yes Review of Systems A total of 10 systems reviewed and were otherwise negative Physical Exam Vital Signs Vital Signs - 24 hr 07/25/24 21:44 07/25/24 21:44 07/25/24 22:06 Temperature 36.5 C Temperature Source Oral Pulse Rate 50 L 84 Pulse Rate [Apical] 78 Pulse Rate from SpO2 Sensor 78 Respiratory Rate 16 18 26 H Respiratory Effort / Characteristics Non-Labored Non-Labored Respiratory Depth Normal Normal Blood Pressure 158/68 H Blood Pressure [Right Arm] 133/70 Blood Pressure Mean 98 Blood Pressure Mean [Right Arm] 91 Pulse Oximetry 80 L 92 87 L Oxygen Delivery Method Room Air Nasal Cannula Room Air Oxygen Flow Rate 3 Sepsis Recent Fever Within 48 Hours No Sepsis New/Unexplained Change in Mental Status No Sepsis Action Taken by Nursing No Action Required 07/25/24 22:09 07/25/24 22:09 07/25/24 22:09 Temperature Temperature Source Pulse Rate Pulse Rate [Apical] Pulse Rate from SpO2 Sensor Respiratory Rate Respiratory Effort / Characteristics Respiratory Depth Blood Pressure 133/70 133/70 133/70 Blood Pressure [Right Arm] Blood Pressure Mean 100 100 100 Blood Pressure Mean [Right Arm] Pulse Oximetry 92 Oxygen Delivery Method Nasal Cannula Oxygen Flow Rate Sepsis Recent Fever Within 48 Hours Sepsis New/Unexplained Change in Mental Status Sepsis Action Taken by Nursing 07/25/24 22:09 07/25/24 22:09 07/25/24 22:09 Temperature Temperature Source Pulse Rate Pulse Rate [Apical] Pulse Rate from SpO2 Sensor Respiratory Rate Respiratory Effort / Characteristics Respiratory Depth Blood Pressure 133/70 133/70 133/70 Blood Pressure [Right Arm] Blood Pressure Mean 100 100 100 Blood Pressure Mean [Right Arm] Pulse Oximetry Oxygen Delivery Method Oxygen Flow Rate Sepsis Recent Fever Within 48 Hours Sepsis New/Unexplained Change in Mental Status Sepsis Action Taken by Nursing 07/25/24 22:09 07/25/24 22:09 07/25/24 22:09 Temperature Temperature Source Pulse Rate Pulse Rate [Apical] Pulse Rate from SpO2 Sensor Respiratory Rate Respiratory Effort / Characteristics Respiratory Depth Blood Pressure 133/70 133/70 133/70 Blood Pressure [Right Arm] Blood Pressure Mean 100 100 100 Blood Pressure Mean [Right Arm] Pulse Oximetry Oxygen Delivery Method Oxygen Flow Rate Sepsis Recent Fever Within 48 Hours Sepsis New/Unexplained Change in Mental Status Sepsis Action Taken by Nursing 07/25/24 22:09 07/25/24 22:09 07/25/24 22:21 Temperature Temperature Source Pulse Rate 75 Pulse Rate [Apical] Pulse Rate from SpO2 Sensor 68 Respiratory Rate 24 Respiratory Effort / Characteristics Respiratory Depth Blood Pressure 133/70 133/70 Blood Pressure [Right Arm] Blood Pressure Mean 100 100 Blood Pressure Mean [Right Arm] Pulse Oximetry 99 Oxygen Delivery Method Oxygen Flow Rate Sepsis Recent Fever Within 48 Hours Sepsis New/Unexplained Change in Mental Status Sepsis Action Taken by Nursing 07/25/24 22:31 07/25/24 22:45 07/25/24 22:47 Temperature Temperature Source Pulse Rate 90 108 H Pulse Rate [Apical] Pulse Rate from SpO2 Sensor Respiratory Rate 26 H Respiratory Effort / Characteristics Respiratory Depth Blood Pressure Blood Pressure [Right Arm] Blood Pressure Mean Blood Pressure Mean [Right Arm] Pulse Oximetry Oxygen Delivery Method Nasal Cannula Oxygen Flow Rate Sepsis Recent Fever Within 48 Hours Sepsis New/Unexplained Change in Mental Status Sepsis Action Taken by Nursing 07/25/24 22:51 07/25/24 23:27 07/25/24 23:36 Temperature Temperature Source Pulse Rate 91 H 83 Pulse Rate [Apical] Pulse Rate from SpO2 Sensor 73 67 Respiratory Rate 25 H 29 H Respiratory Effort / Characteristics Respiratory Depth Blood Pressure 122/74 Blood Pressure [Right Arm] Blood Pressure Mean 86 Blood Pressure Mean [Right Arm] Pulse Oximetry 92 Oxygen Delivery Method Oxygen Flow Rate Sepsis Recent Fever Within 48 Hours Sepsis New/Unexplained Change in Mental Status Sepsis Action Taken by Nursing 07/25/24 23:36 07/25/24 23:36 07/25/24 23:36 Temperature Temperature Source Pulse Rate Pulse Rate [Apical] Pulse Rate from SpO2 Sensor Respiratory Rate Respiratory Effort / Characteristics Respiratory Depth Blood Pressure 122/74 122/74 122/74 Blood Pressure [Right Arm] Blood Pressure Mean 86 86 86 Blood Pressure Mean [Right Arm] Pulse Oximetry Oxygen Delivery Method Oxygen Flow Rate Sepsis Recent Fever Within 48 Hours Sepsis New/Unexplained Change in Mental Status Sepsis Action Taken by Nursing 07/25/24 23:36 07/25/24 23:36 07/25/24 23:36 Temperature Temperature Source Pulse Rate Pulse Rate [Apical] Pulse Rate from SpO2 Sensor Respiratory Rate Respiratory Effort / Characteristics Respiratory Depth Blood Pressure 122/74 122/74 122/74 Blood Pressure [Right Arm] Blood Pressure Mean 86 86 86 Blood Pressure Mean [Right Arm] Pulse Oximetry Oxygen Delivery Method Oxygen Flow Rate Sepsis Recent Fever Within 48 Hours Sepsis New/Unexplained Change in Mental Status Sepsis Action Taken by Nursing 07/25/24 23:36 07/25/24 23:36 07/25/24 23:36 Temperature Temperature Source Pulse Rate Pulse Rate [Apical] Pulse Rate from SpO2 Sensor Respiratory Rate Respiratory Effort / Characteristics Respiratory Depth Blood Pressure 122/74 122/74 122/74 Blood Pressure [Right Arm] Blood Pressure Mean 86 86 86 Blood Pressure Mean [Right Arm] Pulse Oximetry Oxygen Delivery Method Oxygen Flow Rate Sepsis Recent Fever Within 48 Hours Sepsis New/Unexplained Change in Mental Status Sepsis Action Taken by Nursing 07/25/24 23:37 07/25/24 23:45 07/25/24 23:51 Temperature Temperature Source Pulse Rate 58 L 85 71 Pulse Rate [Apical] Pulse Rate from SpO2 Sensor 71 68 Respiratory Rate 16 25 H 24 Respiratory Effort / Characteristics Respiratory Depth Blood Pressure 122/74 Blood Pressure [Right Arm] Blood Pressure Mean 90 Blood Pressure Mean [Right Arm] Pulse Oximetry 94 96 91 Oxygen Delivery Method Nasal Cannula Oxygen Flow Rate 2 Sepsis Recent Fever Within 48 Hours Sepsis New/Unexplained Change in Mental Status Sepsis Action Taken by Nursing 07/26/24 00:02 07/26/24 00:02 07/26/24 00:02 Temperature Temperature Source Pulse Rate Pulse Rate [Apical] Pulse Rate from SpO2 Sensor Respiratory Rate Respiratory Effort / Characteristics Respiratory Depth Blood Pressure 142/54 H 142/54 H 142/54 H Blood Pressure [Right Arm] Blood Pressure Mean 68 68 68 Blood Pressure Mean [Right Arm] Pulse Oximetry Oxygen Delivery Method Oxygen Flow Rate Sepsis Recent Fever Within 48 Hours Sepsis New/Unexplained Change in Mental Status Sepsis Action Taken by Nursing 07/26/24 00:02 07/26/24 00:02 07/26/24 00:02 Temperature Temperature Source Pulse Rate Pulse Rate [Apical] Pulse Rate from SpO2 Sensor Respiratory Rate Respiratory Effort / Characteristics Respiratory Depth Blood Pressure 142/54 H 142/54 H 142/54 H Blood Pressure [Right Arm] Blood Pressure Mean 68 68 68 Blood Pressure Mean [Right Arm] Pulse Oximetry Oxygen Delivery Method Oxygen Flow Rate Sepsis Recent Fever Within 48 Hours Sepsis New/Unexplained Change in Mental Status Sepsis Action Taken by Nursing 07/26/24 00:02 07/26/24 00:02 07/26/24 00:02 Temperature Temperature Source Pulse Rate Pulse Rate [Apical] Pulse Rate from SpO2 Sensor Respiratory Rate Respiratory Effort / Characteristics Respiratory Depth Blood Pressure 142/54 H 142/54 H 142/54 H Blood Pressure [Right Arm] Blood Pressure Mean 68 68 68 Blood Pressure Mean [Right Arm] Pulse Oximetry Oxygen Delivery Method Oxygen Flow Rate Sepsis Recent Fever Within 48 Hours Sepsis New/Unexplained Change in Mental Status Sepsis Action Taken by Nursing 07/26/24 00:02 07/26/24 00:03 07/26/24 00:18 Temperature Temperature Source Pulse Rate 88 Pulse Rate [Apical] Pulse Rate from SpO2 Sensor 70 66 Respiratory Rate 18 26 H Respiratory Effort / Characteristics Respiratory Depth Blood Pressure 142/54 H Blood Pressure [Right Arm] Blood Pressure Mean 68 Blood Pressure Mean [Right Arm] Pulse Oximetry 99 96 Oxygen Delivery Method Oxygen Flow Rate Sepsis Recent Fever Within 48 Hours Sepsis New/Unexplained Change in Mental Status Sepsis Action Taken by Nursing 07/26/24 00:21 07/26/24 00:30 07/26/24 00:30 Temperature Temperature Source Pulse Rate 85 Pulse Rate [Apical] Pulse Rate from SpO2 Sensor 68 Respiratory Rate 32 H Respiratory Effort / Characteristics Respiratory Depth Blood Pressure 156/81 H 156/81 H Blood Pressure [Right Arm] Blood Pressure Mean 108 108 Blood Pressure Mean [Right Arm] Pulse Oximetry 91 Oxygen Delivery Method Oxygen Flow Rate Sepsis Recent Fever Within 48 Hours Sepsis New/Unexplained Change in Mental Status Sepsis Action Taken by Nursing 07/26/24 00:30 07/26/24 00:30 07/26/24 00:30 Temperature Temperature Source Pulse Rate Pulse Rate [Apical] Pulse Rate from SpO2 Sensor Respiratory Rate Respiratory Effort / Characteristics Respiratory Depth Blood Pressure 156/81 H 156/81 H 156/81 H Blood Pressure [Right Arm] Blood Pressure Mean 108 108 108 Blood Pressure Mean [Right Arm] Pulse Oximetry Oxygen Delivery Method Oxygen Flow Rate Sepsis Recent Fever Within 48 Hours Sepsis New/Unexplained Change in Mental Status Sepsis Action Taken by Nursing 07/26/24 00:30 07/26/24 00:30 07/26/24 00:30 Temperature Temperature Source Pulse Rate Pulse Rate [Apical] Pulse Rate from SpO2 Sensor Respiratory Rate Respiratory Effort / Characteristics Respiratory Depth Blood Pressure 156/81 H 156/81 H 156/81 H Blood Pressure [Right Arm] Blood Pressure Mean 108 108 108 Blood Pressure Mean [Right Arm] Pulse Oximetry Oxygen Delivery Method Oxygen Flow Rate Sepsis Recent Fever Within 48 Hours Sepsis New/Unexplained Change in Mental Status Sepsis Action Taken by Nursing 07/26/24 00:30 07/26/24 00:30 07/26/24 00:45 Temperature Temperature Source Pulse Rate 83 Pulse Rate [Apical] Pulse Rate from SpO2 Sensor 66 Respiratory Rate 26 H Respiratory Effort / Characteristics Respiratory Depth Blood Pressure 156/81 H 156/81 H Blood Pressure [Right Arm] Blood Pressure Mean 108 108 Blood Pressure Mean [Right Arm] Pulse Oximetry 100 Oxygen Delivery Method Oxygen Flow Rate Sepsis Recent Fever Within 48 Hours Sepsis New/Unexplained Change in Mental Status Sepsis Action Taken by Nursing 07/26/24 00:51 07/26/24 01:00 07/26/24 01:00 Temperature Temperature Source Pulse Rate 83 85 Pulse Rate [Apical] Pulse Rate from SpO2 Sensor 70 70 Respiratory Rate 31 H 25 H Respiratory Effort / Characteristics Respiratory Depth Blood Pressure 148/76 H Blood Pressure [Right Arm] Blood Pressure Mean 98 Blood Pressure Mean [Right Arm] Pulse Oximetry 100 100 Oxygen Delivery Method Oxygen Flow Rate Sepsis Recent Fever Within 48 Hours Sepsis New/Unexplained Change in Mental Status Sepsis Action Taken by Nursing 07/26/24 01:00 07/26/24 01:00 07/26/24 01:00 Temperature Temperature Source Pulse Rate Pulse Rate [Apical] Pulse Rate from SpO2 Sensor Respiratory Rate Respiratory Effort / Characteristics Respiratory Depth Blood Pressure 148/76 H 148/76 H 148/76 H Blood Pressure [Right Arm] Blood Pressure Mean 98 98 98 Blood Pressure Mean [Right Arm] Pulse Oximetry Oxygen Delivery Method Oxygen Flow Rate Sepsis Recent Fever Within 48 Hours Sepsis New/Unexplained Change in Mental Status Sepsis Action Taken by Nursing 07/26/24 01:00 07/26/24 01:00 07/26/24 01:00 Temperature Temperature Source Pulse Rate Pulse Rate [Apical] Pulse Rate from SpO2 Sensor Respiratory Rate Respiratory Effort / Characteristics Respiratory Depth Blood Pressure 148/76 H 148/76 H 148/76 H Blood Pressure [Right Arm] Blood Pressure Mean 98 98 98 Blood Pressure Mean [Right Arm] Pulse Oximetry Oxygen Delivery Method Oxygen Flow Rate Sepsis Recent Fever Within 48 Hours Sepsis New/Unexplained Change in Mental Status Sepsis Action Taken by Nursing 07/26/24 01:18 Temperature Temperature Source Pulse Rate 76 Pulse Rate [Apical] Pulse Rate from SpO2 Sensor 70 Respiratory Rate 24 Respiratory Effort / Characteristics Respiratory Depth Blood Pressure Blood Pressure [Right Arm] Blood Pressure Mean Blood Pressure Mean [Right Arm] Pulse Oximetry 96 Oxygen Delivery Method Oxygen Flow Rate Sepsis Recent Fever Within 48 Hours Sepsis New/Unexplained Change in Mental Status Sepsis Action Taken by Nursing VITALS: Vitals are noted on the nurse's note and reviewed by myself. Vital signs stable. GENERAL: Elderly white male who appears confused on presentation. He will answer questions, however with inappropriate answers. HEAD: Normocephalic atraumatic. MOUTH: Mucous membranes moist. Tonsils are not enlarged. Pharynx without erythema, blood, or exudate. Uvula midline. Airway patent. NECK: Supple without nuchal rigidity. No lymphadenopathy. No thyromegaly. Cervical spine is nontender. HEART: Regular rate with PVCs LUNGS: Clear to auscultation bilaterally without wheezes, rales or rhonchi. No retractions or accessory muscle use. ABDOMEN: Positive normal bowel sounds x 4. Soft, nontender, without masses or organomegaly. No guarding or rebound tenderness. MUSCULOSKELETAL: No muscle atrophy, erythema, or edema noted. Full range of motion in all extremities. NEURO: Patient was alert but not oriented to location or time. Course Administered Medications Potassium Chloride (K Enrique / Wtr) 10 meq in 100 mls @ 100 mls/hr IV Q1H [facility] Stop: 07/26/24 04:29 Last Admin: 07/26/24 01:56 Dose: 100 mls/hr Documented By: GEORGETTE Magnesium Sulfate/Dextrose (Magnesium Sulfate / D5w) 1 gm in 100 mls @ 50 mls/hr IV Q2H [facility] Stop: 07/26/24 05:29 Last Admin: 07/26/24 01:56 Dose: 50 mls/hr Documented By: GEORGETTE Discontinued Medications Sodium Chloride (Nss) 1,000 mls @ 999 mls/hr IV .Q1H1M ONE Stop: 07/25/24 23:30 Last Infusion: 07/26/24 00:00 Dose: Infused Documented By: Admin: 07/25/24 22:57 Dose: 999 mls/hr Documented By: GEORGETTE Magnesium Sulfate/Dextrose (Magnesium Sulfate / D5w) 1 gm in 100 mls @ 100 mls/hr IV NOW STA Stop: 07/26/24 00:45 Last Infusion: 07/26/24 01:00 Dose: Infused Documented By: Admin: 07/25/24 23:54 Dose: 100 mls/hr Documented By: GEORGETTE Sodium Chloride (Nss) 1,000 mls @ 999 mls/hr IV .Q1H1M ONE Stop: 07/26/24 01:24 Last Infusion: 07/26/24 01:30 Dose: Infused Documented By: Admin: 07/26/24 00:29 Dose: 999 mls/hr Documented By: GEORGETTE Potassium Chloride (Potassium Chloride Crtab 20 Meq Tabcr) 40 meq PO NOW STA Stop: 07/26/24 01:24 Last Admin: 07/26/24 01:58 Dose: 40 meq Documented By: GEORGETTE Medical Decision Making Differential Diagnosis Differential diagnosis: Etiologies such as syncope, fall, rhabdomyolysis, sepsis, UTI, pneumonia, bacteremia, metabolic process, electrolyte abnormalities, cardiac sources, intracerebral event, intra-abdominal process, toxicological process, neurologic process, as well as others were entertained. Laboratory Data 07/25/24 22:07 07/25/24 22:07 Lab Results 07/25/24 07/25/24 07/25/24 Range/Units 22:07 22:37 22:48 WBC 13.92 H (4.8-10.8) K/ul RBC 5.23 (4.70-6.10) M/uL Hgb 16.3 (14.0-18.0) g/dl Hct 48.2 (42.0-52.0) % MCV 92.2 (80.0-100.0) fL MCH 31.2 (25.0-34.0) pg MCHC 33.8 (32.0-36.0) g/dL RDW Std Deviation 47.2 H (36.4-46.3) fL RDW Coeff of Vincenzo 14.2 (11.5-14.5) % Plt Count 256 (130-400) K/uL MPV 10.3 (9.4-12.4) fL Immature Gran % (Auto) 0.3 % Neut % (Auto) 81.7 % Lymph % (Auto) 9.3 % Cloud % (Auto) 8.3 % Eos % (Auto) 0.1 % Baso % (Auto) 0.3 % Neut # (Auto) 11.38 H (1.40-6.50) K/uL Lymph # (Auto) 1.30 (1.20-3.40) K/uL Cloud # (Auto) 1.15 H (0.11-0.59) K/uL Eos # (Auto) 0.01 (0.00-0.50) K/uL Baso # (Auto) 0.04 (0.00-0.20) K/uL Immature Gran # (Auto) 0.04 (0.01-0.20) K/uL PT 12.7 H (9.0-12.0) Seconds INR 1.2 H (0.9-1.1) APTT 25 (21-31) Seconds PTT Ratio 0.9 VBG pH (7.36-7.41) VBG pCO2 (38-50) mmHg VBG pO2 mmHg VBG HCO3 mmol/L VBG O2 Saturation % VBG Base Excess mEq/L Sodium 141 (136-145) mmol/L Potassium 3.2 L (3.5-5.1) mmol/L Chloride 101 (98-107) mmol/L Carbon Dioxide 28 (21-32) mmol/L Anion Gap 12 H (3-11) BUN 22 (6-23) mg/dl Creatinine 1.15 (0.6-1.4) mg/dl Est Cr Clr Drug Dosing 50.3 ml/min eGFR 63.15 BUN/Creatinine Ratio 19.1 (10-20) Glucose 143 H (70-99(Fasting)) mg/dl Lactate (0.4-2.0) mmol/L Calcium 9.5 (8.6-10.3) mg/dl Magnesium 1.2 L (1.7-2.4) mg/dl Total Bilirubin 1.3 H (0.2-1.0) mg/dl AST 460 H (13-39) U/L ALT 75 H (7-52) U/L Alkaline Phosphatase 63 (34-104) U/L Ammonia 14.0 L (18-72) umol/L Total Creatine Kinase 02074 H (30-223) U/L Troponin I High Sens 240.5 H* (0-20) pg/ml B-Natriuretic Peptide 185 H (0-100) pg/ml Total Protein 7.3 (6.0-8.3) gm/dl Albumin 4.3 (3.4-5.0) gm/dl Globulin 3.0 (2.5-4.0) gm/dl Albumin/Globulin Ratio 1.4 (0.9-2) Lipase 7 L (11-82) U/L Procalcitonin 0.42 (0-0.5) ng/ml Urine Color Urine Appearance (Clear) Urine pH (4.5-7.5) Ur Specific [place] (1.000-1.030) Urine Protein (Negative) Urine Glucose (UA) (Negative) Urine Ketones (Negative) Urine Blood (Negative) Urine Nitrite (Negative) Urine Bilirubin (Negative) Urine Urobilinogen (Negative) Ur Leukocyte Esterase (Negative) Urine WBC (Auto) (0-5) /hpf Urine RBC (Auto) (0-2) /hpf U Hyaline Cast (Auto) (0-2) /lpf U Epithel Cells (Auto) (0-2) /hpf Urine Bacteria (Auto) (None Seen) Adenovirus (PCR) Not Detected (NotDetected) B. pertussis DNA (PCR) Not Detected (NotDetected) B.parapertussis DNA PCR Not Detected (NotDetected) C. pneumoniae DNA (PCR) Not Detected (NotDetected) Coronavirus OC43 (PCR) Not Detected (NotDetected) Coronavirus HKU1 (PCR) Not Detected (NotDetected) Coronavirus 229E (PCR) Not Detected (NotDetected) SARS-CoV-2 (PCR) Not Detected (NotDetected) Coronavirus NL63 (PCR) Not Detected (NotDetected) Human Metapneumovir PCR Not Detected (NotDetected) Influenza Type A (PCR) Not Detected (NotDetected) Influenza Type B (PCR) Not Detected (NotDetected) M. pneumoniae (PCR) Not Detected (NotDetected) Parainfluenza 1 (PCR) Not Detected (NotDetected) Parainfluenza 2 (PCR) Not Detected (NotDetected) Parainfluenza 3 (PCR) Not Detected (NotDetected) Parainfluenza 4 (PCR) Not Detected (NotDetected) RSV (PCR) Not Detected (NotDetected) Entero/Rhino (PCR) Not Detected (NotDetected) 07/25/24 07/26/24 07/26/24 Range/Units 22:56 00:40 00:58 WBC (4.8-10.8) K/ul RBC (4.70-6.10) M/uL Hgb (14.0-18.0) g/dl Hct (42.0-52.0) % MCV (80.0-100.0) fL MCH (25.0-34.0) pg MCHC (32.0-36.0) g/dL RDW Std Deviation (36.4-46.3) fL RDW Coeff of Vincenzo (11.5-14.5) % Plt Count (130-400) K/uL MPV (9.4-12.4) fL Immature Gran % (Auto) % Neut % (Auto) % Lymph % (Auto) % Cloud % (Auto) % Eos % (Auto) % Baso % (Auto) % Neut # (Auto) (1.40-6.50) K/uL Lymph # (Auto) (1.20-3.40) K/uL Cloud # (Auto) (0.11-0.59) K/uL Eos # (Auto) (0.00-0.50) K/uL Baso # (Auto) (0.00-0.20) K/uL Immature Gran # (Auto) (0.01-0.20) K/uL PT (9.0-12.0) Seconds INR (0.9-1.1) APTT (21-31) Seconds PTT Ratio VBG pH 7.41 (7.36-7.41) VBG pCO2 47 (38-50) mmHg VBG pO2 30 mmHg VBG HCO3 30 mmol/L VBG O2 Saturation < 60.0 % VBG Base Excess 4.3 mEq/L Sodium (136-145) mmol/L Potassium (3.5-5.1) mmol/L Chloride (98-107) mmol/L Carbon Dioxide (21-32) mmol/L Anion Gap (3-11) BUN (6-23) mg/dl Creatinine (0.6-1.4) mg/dl Est Cr Clr Drug Dosing ml/min eGFR BUN/Creatinine Ratio (10-20) Glucose (70-99(Fasting)) mg/dl Lactate 2.1 H* 1.4 (0.4-2.0) mmol/L Calcium (8.6-10.3) mg/dl Magnesium (1.7-2.4) mg/dl Total Bilirubin (0.2-1.0) mg/dl AST (13-39) U/L ALT (7-52) U/L Alkaline Phosphatase (34-104) U/L Ammonia (18-72) umol/L Total Creatine Kinase (30-223) U/L Troponin I High Sens 219.4 H* (0-20) pg/ml B-Natriuretic Peptide (0-100) pg/ml Total Protein (6.0-8.3) gm/dl Albumin (3.4-5.0) gm/dl Globulin (2.5-4.0) gm/dl Albumin/Globulin Ratio (0.9-2) Lipase (11-82) U/L Procalcitonin (0-0.5) ng/ml Urine Color Dark Yellow Urine Appearance Clear (Clear) Urine pH 5.5 (4.5-7.5) Ur Specific [place] 1.028 (1.000-1.030) Urine Protein 3+ H (Negative) Urine Glucose (UA) Negative (Negative) Urine Ketones 2+ H (Negative) Urine Blood 3+ H (Negative) Urine Nitrite Negative (Negative) Urine Bilirubin Negative (Negative) Urine Urobilinogen Negative (Negative) Ur Leukocyte Esterase Negative (Negative) Urine WBC (Auto) 0-5 (0-5) /hpf Urine RBC (Auto) 11-20 H (0-2) /hpf U Hyaline Cast (Auto) 3-5 H (0-2) /lpf U Epithel Cells (Auto) 0-2 (0-2) /hpf Urine Bacteria (Auto) None Seen (None Seen) Adenovirus (PCR) (NotDetected) B. pertussis DNA (PCR) (NotDetected) B.parapertussis DNA PCR (NotDetected) C. pneumoniae DNA (PCR) (NotDetected) Coronavirus OC43 (PCR) (NotDetected) Coronavirus HKU1 (PCR) (NotDetected) Coronavirus 229E (PCR) (NotDetected) SARS-CoV-2 (PCR) (NotDetected) Coronavirus NL63 (PCR) (NotDetected) Human Metapneumovir PCR (NotDetected) Influenza Type A (PCR) (NotDetected) Influenza Type B (PCR) (NotDetected) M. pneumoniae (PCR) (NotDetected) Parainfluenza 1 (PCR) (NotDetected) Parainfluenza 2 (PCR) (NotDetected) Parainfluenza 3 (PCR) (NotDetected) Parainfluenza 4 (PCR) (NotDetected) RSV (PCR) (NotDetected) Entero/Rhino (PCR) (NotDetected) Imaging Data Radiologist's Impression: Chest X-Ray 07/25/24 22:30 CR Exam(s): XR CXR 1 VIEW EXAM: XR Chest, 1 View CLINICAL HISTORY: Reason for exam: hypoxia, fall. TECHNIQUE: Frontal view of the chest. COMPARISON: No relevant prior studies available. FINDINGS: Lungs: Moderate peribronchial thickening of the central and lower lobe bronchi with patchy opacity at the left lung base. No consolidation. Pleural space: Unremarkable. No pneumothorax. Heart: Small left pleural effusion. No cardiomegaly. Mediastinum: Unremarkable. Normal mediastinal contour. Bones/joints: Unremarkable. No acute fracture. IMPRESSION: Left lower lobe infiltrate with small pleural effusion. Communications: Verify Receipt Electronically signed by: Shy Burgess MD 07/26/24 01:[address] 07/25/24 22:30 Exam(s): CT HEAD Without Contrast EXAM: CT Head Without Intravenous Contrast CLINICAL HISTORY: Reason for exam: AMS, fall. TECHNIQUE: Axial computed tomography images of the head/brain without intravenous contrast. CTDI is 38.31 mGy and DLP is 625.8 mGy-cm. Automated exposure control was utilized for the study. A dose lowering technique was utilized adhering to the principles of ALARA. COMPARISON: No relevant prior studies available. FINDINGS: The study is limited secondary to motion artifact. Brain: Unremarkable. No hemorrhage. Moderate nonspecific white matter changes.. No edema. Ventricles: Unremarkable. No ventriculomegaly. Bones/joints: Unremarkable. No acute fracture. Soft tissues: Unremarkable. Sinuses: Unremarkable as visualized. No acute sinusitis. Mastoid air cells: Unremarkable as visualized. No mastoid effusion. IMPRESSION: No evidence of acute intracranial pathology. Electronically signed by: Shy Burgess MD 07/26/24 01:16 AM MDM Narrative Physical exam and history were performed. Nursing notes, EMR, and Medication List were personally reviewed. No social concerns were identified as barriers to patients care. History was provided by the Patient, EMS, and neighbors who are at bedside. Patient appears to have had unknown downtime in his home that seems to be between 36 and 48 hours. The patient does not provide clear history himself. He does appear altered. IV access was established and labs were obtained. Case discussed with my attending. An order was placed for continuous cardiac monitoring. The monitor shows a rate of 82 with normal sinus rhythm. Patient's blood work is as above and was reviewed. He does have an elevated white count of 13.92. He does not have significant anemia. INR is 1.2 of unknown significance. VBG is normal and reassuring. BUN and creatinine are preserved. Glucose 143. Initial lactic is elevated at 2.1 with repeat after hydration 1.4. Magnesium is low at 1.2 and patient was given IV magnesium in the ER. AST is elevated at 460 of unknown etiology. Ammonia is normal. CK is markedly elevated at 25,000 and indicative of rhabdomyolysis. Initial troponin is 240. BNP is slightly elevated at 185. Procalcitonin negative. Urine with ketones suggesting some dehydration. Respiratory BioFire is negative. CT scan of the head as well as chest x-ray were performed and reviewed by myself and radiology. CT scan of the head does not show acute findings, whereas the x- ray appears to show a left lower lobe infiltrate with small pleural effusion. Patient will need hydration for his rhabdomyolysis, and was given a total of 2 L here in the ER. He is considered a fall risk and I did place him on a bed alarm. Stephens catheter was placed by nursing. Escalation of care was considered, and is necessary for this patient. He does not appear well for discharge home. Case was discussed with the on-call hospitalist team who will begin antibiotics. Please see their dictation for further patient course, plan, and disposition. The chart was completed utilizing [employer] Speech Voice Recognition Software. Grammatical errors, random word insertions, pronoun errors, and incomplete sentences are an occasional consequence of this system due to software limitations, ambient noise, and hardware issues. Any formal questions or concerns about the content, text, or information contained within the body of this dictation should be directly addressed to the provider for clarification. Impression & Plan Rhabdomyolysis, Fall, Hypoxia, Elevated troponin, Pneumonia, Hypomagnesemia Discharge Plan Visit Data Chief Complaint: Fall Stated Complaint: FALL ED Provider: Leeanna Beck ED Midlevel Provider: Dallas Dowling Discharge Problem: Rhabdomyolysis, Fall, Hypoxia, Elevated troponin, Pneumonia, Hypomagnesemia Patient Disposition: Admitted As Inpatient Discharge Instructions Interventions: ED Discharge Assessment Last Done: 07/26/24 02:23
[2024-07-25] MEDS: MAGNESIUM SULFATE / D5W 1 GM/100 ML BAG IV STA (23:54)
[2024-07-25 23:55] LABS: Adenovirus PCR Not Detected (NotDetected); Bordetella parapertussis PCR Not Detected (NotDetected); Bordetella pertussis PCR Not Detected (NotDetected); Chlamydia pneumoniae PCR Not Detected (NotDetected); Coronavirus 229E PCR Not Detected (NotDetected); Coronavirus CoV-2 (COVID19)PCR Not Detected (NotDetected); Coronavirus HKU1 PCR Not Detected (NotDetected); Coronavirus NL63 PCR Not Detected (NotDetected); Coronavirus OC43PCR Not Detected (NotDetected); Human Metapneumovirus PCR Not Detected (NotDetected); Influenza A PCR Not Detected (NotDetected); Influenza B PCR Not Detected (NotDetected); Mycoplasma pneumoniae PCR Not Detected (NotDetected); Parainfluenza Virus 1 PCR Not Detected (NotDetected); Parainfluenza Virus 2 PCR Not Detected (NotDetected); Parainfluenza Virus 3 PCR Not Detected (NotDetected); Parainfluenza Virus 4 PCR Not Detected (NotDetected); Respiratory Syncytial VirusPCR Not Detected (NotDetected); Rhinovirus/Enterovirus PCR Not Detected (NotDetected)
[2024-07-26 00:10] LABS: Albumin Globulin Ratio 1.4 (0.9-2); Total Protein 7.3 gm/dl (6.0-8.3); Troponin I High Sensitivity 240.5 pg/ml (0-20)
[2024-07-26] MEDS: SODIUM CHLORIDE 0.9% 1,000 ML IV ONE (00:29)
--- NOTE | 2024-07-26 01:05 | XRay Report ---
Exam(s): XR CXR 1 VIEW EXAM: XR Chest, 1 View CLINICAL HISTORY: Reason for exam: hypoxia, fall. TECHNIQUE: Frontal view of the chest. COMPARISON: No relevant prior studies available. FINDINGS: Lungs: Moderate peribronchial thickening of the central and lower lobe bronchi with patchy opacity at the left lung base. No consolidation. Pleural space: Unremarkable. No pneumothorax. Heart: Small left pleural effusion. No cardiomegaly. Mediastinum: Unremarkable. Normal mediastinal contour. Bones/joints: Unremarkable. No acute fracture. IMPRESSION: Left lower lobe infiltrate with small pleural effusion. Communications: Verify Receipt Electronically signed by: Shy Burgess MD 07/26/24 01:04 AM
[2024-07-26 01:15] LABS: Appearance Urine Clear (Clear); Bacteria Urine Automated None Seen (None Seen); Bilirubin Urine Negative (Negative); Blood Urine 3+ (Negative); Color Urine Dark Yellow; Epithelial Cell Urine Auto 0-2 /hpf (0-2); Glucose Urine UA Negative (Negative); Ketones Urine 2+ (Negative); Leukocyte Esterase Urine Negative (Negative); Nitrite Urine Negative (Negative); Protein Urine 3+ (Negative); Specific Gravity Urine 1.028 (1.000-1.030); Urobilinogen Urine Negative (Negative); WBC Urine Automated 0-5 /hpf (0-5); pH Urine 5.5 (4.5-7.5)
--- NOTE | 2024-07-26 01:15 | History & Physical Report ---
Date of Service July 26, 2024 Assessment & Plan (1) Rhabdomyolysis: (2) Fall: (3) Hypoxia: (4) Pneumonia: (5) Elevated troponin: (6) T2DM (type 2 diabetes mellitus): Plan Patient is an 84-year-old male with past medical history of type II DM, BPH, CKD, hypertension, hyperlipidemia. He presented to the ED via EMS after a fall in which she was suspected to be on the ground for approximately 2 days. Patient's is not [facility] and was unable to contact the patient for 2 days. His neighbors went over and found him on the floor today and called EMS. Patient stated he did not fell but rather slid to the floor and was unable to get up for several days. Patient is alert and oriented on admission. He is being admitted after found to have rhabdomyolysis with a CK of 25,000. He also became hypoxic in the ED. #rhabdomyolysis/Transaminitis/fall 2/2 fall and on [place] [address] [place] [id number] lactate 2.1 -> 1.4 Creatinine stable, procal WNL, VBG WNL UA showed hematuria - 3+ protein, 2+ ketones, 3+ blood, 11-20 RBC, 3-5 hyaline casts Transaminitis total bili 1.3, AST 460, ALT 75 leukocytosis - WBC 13.92 given 2 L NSS bolus in ED, continue fluid resuscitation with LR @ 100ml/hr hypokalemia - 3.2 - 3 bag k rider and 40 meq PO Kcl hypomagnesemia - Mag 1.2 - 3g IV mag trend CK, CMP, Mag, cbc follow blood cultures fall and aspiration precautions PT/OT consulted #Hypoxia/PNA 80 on RA -> 2 L NC CXR showing possible left lower lobe infiltrate with small pleural effusion mild leukocytosis as above afebrile, VSS biofire negative wean O2 as tolerated suspect post obstructive cause - zosyn ordered - patient does not recall history of penicillin allergy noted in chart #elevated troponin 240.5 in ED suspect 2/2 demand with above Correcting electrolytes as above trend trop monitor on tele #t2dm Controlled on metformin at home; held Most recent A1C 8.5 SSI with target BSG range 140-180 mg/dL, CF 30, carb ratio 15 Chronic stable diagnoses: OSACPAP hs ordered HLDhold statin with transaminitis above HTNholding HCTZ, continue ACEi BPHcontinue finasteride Increased ferritinconcern for malignancy, elevated PSA, being followed by PCP and urology GERDcontinue PPI VTE ppx: SCDs, low risk and fall risk Diet: T2DM Dispo: med/telemetry Of note, patient has a different chart under different MRN. ER community service officer working to merge charts and will be unable to go through EMR until the morning 07/26 Admission and Anticipated Discharge Date Admission Date: 07/26/2024 History of Present Illness Chief Complaint: fall Primary Care Provider: Thu Thomas MD Patient is an 84-year-old male with past medical history of type II DM, BPH, CKD, hypertension, hyperlipidemia. He presented to the ED via EMS after a fall in which she was suspected to be on the ground for approximately 2 days. Patient's is not [facility] and was unable to contact the patient for 2 days. His neighbors went over and found him on the floor today and called EMS. Patient stated he did not fell but rather slid to the floor and was unable to get up for several days. Patient is alert and oriented on admission. He is being admitted after found to have rhabdomyolysis with a CK of 25,000. He also became hypoxic in the ED. Patient seen at bedside. Of note there was some confusion and that the patient was noted to be disoriented as he could not remember his name or birthdate, however patient's name is very similar to his and has a similar birthdate at the confusion. Patient is completely alert and oriented on admission, does make several unrelated comments. he stated that he slid in the bathroom and did not fall, denies head strike. He stated he does have back pain. He typically ambulates without assistance at baseline a few falls in the past due to tripping over things. Patient denies headache, dizziness, lightheadedness, dyspnea,chest pain, abdominal pain, nausea, vomiting, numbness, tingling. He does not use nicotine products or frequently drink alcohol. He has not had his home medications in several days. He wishes to be full code. He does use CPAP at night for sleep apnea. Patient stated his family is aware that he is here, his brother in law is coming into town to visit him tomorrow. Allergies Allergy/AdvReac Type Severity Reaction Status Date / Time Penicillins Allergy Intermediate SWELLING/RA Verified 07/25/24 23:34 SH Sulfa (Sulfonamide Allergy Intermediate Rash Verified 07/25/24 23:34 Antibiotics) Home Medications Medication Instructions Recorded Confirmed Type aspirin 81 mg tablet,delayed 81 mg PO DAILY 07/25/24 07/25/24 History release atorvastatin 40 mg tablet 40 mg PO PM 07/25/24 07/25/24 History bimatoprost 0.01 % eye drops 1 drp ophthalmic (eye) HS 07/25/24 07/25/24 History brimonidine 0.2 %-timolol 0.5 % 1 drp ophthalmic (eye) BID 07/25/24 07/25/24 History eye drops cholecalciferol (vitamin D3) 25 25 mcg PO QDL 07/25/24 07/25/24 History mcg (1,000 unit) capsule (Vitamin D3) diphenhydramine 25 2 tab PO HS PRN Sleep 07/25/24 07/25/24 History mg-acetaminophen 500 mg tablet (Tylenol PM Extra Strength) enalapril maleate 5 mg tablet 5 mg PO DAILY 07/25/24 07/25/24 History finasteride 5 mg tablet 5 mg PO DAILY 07/25/24 07/25/24 History metformin 500 mg tablet 500 mg PO BID 07/25/24 07/25/24 History omeprazole 20 mg capsule,delayed 20 mg PO QPM 07/25/24 07/25/24 History release psyllium husk 3 gram/5.4 gram oral 1 tsp PO QPM 07/25/24 07/25/24 History powder triamterene 37.5 0.5 tab PO DAILY 07/25/24 07/25/24 History mg-hydrochlorothiazide 25 mg tablet Past Med/Surg History Problem List (Updated 07/26/24 @ 02:58 by Dallas Dowling PA-C) Hypomagnesemia (Acute) Pneumonia (Acute) T2DM (type 2 diabetes mellitus) Elevated troponin (Acute) Hypoxia (Acute) Fall (Acute) Rhabdomyolysis (Acute) Social History Smoking Status: Never smoker Hx Alcohol Use: No Hx Substance Use: No Preferred Language: Khmer Final Cleaner Required: No Beliefs That Will Affect Care: None Current Living Situation: Spouse Other Information That Helps Us Care for You: No Feels Safe at Home: Yes Safety Concerns: Feels Safe At This Time Assistive Devices: CPAP Review of Systems Review of Systems: see HPI Physical Exam Physical Exam: The patient is awake, alert and oriented 3, several disoriented comments, disheveled. HEENT- EOMI, mucous membranes dry. Hearing grossly intact. Heart-normal S1 and S2. No murmurs, rubs or gallops. Lungs-clear bilaterally, no respiratory distress, no accessory muscle use. Abdomen-normal bowel sounds and soft. No ascites noted. Non-tender. Extremities- no clubbing, cyanosis, or edema. Psychiatric-normal affect. Results & Data Results & Data Vital Signs (Past 12 Hours) Vital Signs Temp Pulse Pulse Resp BP BP Pulse Ox 07/26/24 00:30 156/81 H 07/26/24 00:30 156/81 H 07/26/24 00:30 156/81 H 07/26/24 00:21 85 32 H 91 07/26/24 00:18 88 26 H 96 07/26/24 00:03 18 99 07/26/24 00:02 142/54 H 07/26/24 00:02 142/54 H 07/26/24 00:02 142/54 H 07/26/24 00:02 142/54 H 07/26/24 00:02 142/54 H 07/26/24 00:02 142/54 H 07/26/24 00:02 142/54 H 07/26/24 00:02 142/54 H 07/26/24 00:02 142/54 H 07/26/24 00:02 142/54 H 07/25/24 23:51 71 24 91 07/25/24 23:45 85 25 H 96 07/25/24 23:37 58 L 16 122/74 94 07/25/24 23:36 122/74 07/25/24 23:36 122/74 07/25/24 23:36 122/74 07/25/24 23:36 122/74 07/25/24 23:36 122/74 07/25/24 23:36 122/74 07/25/24 23:36 122/74 07/25/24 23:36 122/74 07/25/24 23:36 122/74 07/25/24 23:36 122/74 07/25/24 23:27 83 29 H 92 07/25/24 22:51 91 H 25 H 07/25/24 22:47 108 H 07/25/24 22:45 90 26 H 07/25/24 22:31 07/25/24 22:21 75 24 99 07/25/24 22:09 133/70 07/25/24 22:09 133/70 07/25/24 22:09 133/70 07/25/24 22:09 133/70 07/25/24 22:09 133/70 07/25/24 22:09 133/70 07/25/24 22:09 133/70 07/25/24 22:09 133/70 07/25/24 22:09 133/70 07/25/24 22:09 133/70 07/25/24 22:09 133/70 92 07/25/24 22:06 84 26 H 87 L 07/25/24 21:44 78 18 133/70 92 07/25/24 21:44 36.5 C 50 L 16 158/68 H 80 L O2 Del Method O2 Flow Rate 07/26/24 00:30 07/26/24 00:30 07/26/24 00:30 07/26/24 00:21 07/26/24 00:18 07/26/24 00:03 07/26/24 00:02 07/26/24 00:02 07/26/24 00:02 07/26/24 00:02 07/26/24 00:02 07/26/24 00:02 07/26/24 00:02 07/26/24 00:02 07/26/24 00:02 07/26/24 00:02 07/25/24 23:51 07/25/24 23:45 07/25/24 23:37 Nasal Cannula 2 07/25/24 23:36 07/25/24 23:36 07/25/24 23:36 07/25/24 23:36 07/25/24 23:36 07/25/24 23:36 07/25/24 23:36 07/25/24 23:36 07/25/24 23:36 07/25/24 23:36 07/25/24 23:27 07/25/24 22:51 07/25/24 22:47 07/25/24 22:45 07/25/24 22:31 Nasal Cannula 07/25/24 22:21 07/25/24 22:09 07/25/24 22:09 07/25/24 22:09 07/25/24 22:09 07/25/24 22:09 07/25/24 22:09 07/25/24 22:09 07/25/24 22:09 07/25/24 22:09 07/25/24 22:09 07/25/24 22:09 Nasal Cannula 07/25/24 22:06 Room Air 07/25/24 21:44 Nasal Cannula 3 07/25/24 21:44 Room Air Laboratory Results Reviewed CBC, PT/INR, VBG, CMP, lactate, CK, ammonia, BNP, proal, bio fire, UA, troponin, mag Diagnostic Findings reviewed cxr and head ct Medications Administered ED2L NSS, 1G IV admission - LR at 80 mL/hour, 2G IV mag, 3 bag kride, 40me PO KCL ECG Additional Comments: ordered Code Status & VTE Plan Code Status full code VTE Prophylaxis Plan VTE Prophylaxis will be ordered: Yes Supervising Physician Co-Signing Physician Notes Attending addendum: I have physically seen this patient, have supervised the SARIAH's activities, and agree with the H&P unless as otherwise noted. Assessment and Plan: The patient is an 83-year-old male with a past medical history including moreno betes mellitus type 2, BPH, CKD, hypertension, hyperlipidemia who presents to the emergency department after a fall when she was suspected to be on the ground for approximately 2 days. His had been in [facility], was unable to contact the patient for 2 days. His neighbors went over and found him on the floor today, and called EMS. Patient reports that he did not fall but r ather slid to the floor, and was unable to get up for several days. At this time in ED, he is alert and oriented. Workup in the emergency department included findings suggestive of rhabdomyolysis, with CK of 25,062, AST 460, ALT 75, troponin 240.5, magnesium 1.2. #Rhabdomyolysis status post fall- Patient was felt to be on the ground for 2 days, while his was away in [facility]. CT scan head negative CK20 [id number], elevated followed serially Troponin 240.5, 12-19.4, and follow serially AST 460, ALT 75, and follow serially Follow on telemetry Consult PT/OT Acute respite failure with hypoxia/left lower lobe pneumonia- Possible postobstructive/aspiration and present situation Zosyn 4.5 g IV every 8 hours DuoNebs every 2 hours as needed Unclear sequence of rhabdomyolysis versus pneumonia as initial cause of overall symptoms, but most likely respiratory as an inciting cause BioFire testing negative Diabetes mellitus type 2- Hold metformin Most recent A1c 8.[address] on Accu-Cheks with NovoLog SSI as noted Hypomagnesemia- Magnesium 1.2 on admission Holding HCTZ Patient on 3 g IV supplementation Repeat laboratories in the a.m. Chronic medical conditions: AMEE- CPAP as ordered and bedtime Hypertension-holding triamterene/HCTZ BPH-continue finasteride GERD-continue pantoprazole Hyperlipidemia-hold atorvastatin PG Care Time/CCT Total # of Minutes Spent Total Time Spent with Patient: Total time spent is greater than 50% in coordination of care (as documented) at patient's floor/unit and/or counseling patient: Coding Level of Care Code 41467 INT INP/OBS CARE 3/75MIN Diagnoses Rhabdomyolysis M62.82 Fall W19.XXXA Hypoxia R09.02 Pneumonia J18.9 Elevated troponin R79.89 T2DM (type 2 diabetes mellitus) E11.9
--- NOTE | 2024-07-26 01:17 | CT Scan Report ---
Exam(s): CT HEAD Without Contrast EXAM: CT Head Without Intravenous Contrast CLINICAL HISTORY: Reason for exam: AMS, fall. TECHNIQUE: Axial computed tomography images of the head/brain without intravenous contrast. CTDI is 38.31 mGy and DLP is 625.8 mGy-cm. Automated exposure control was utilized for the study. A dose lowering technique was utilized adhering to the principles of ALARA. COMPARISON: No relevant prior studies available. FINDINGS: The study is limited secondary to motion artifact. Brain: Unremarkable. No hemorrhage. Moderate nonspecific white matter changes.. No edema. Ventricles: Unremarkable. No ventriculomegaly. Bones/joints: Unremarkable. No acute fracture. Soft tissues: Unremarkable. Sinuses: Unremarkable as visualized. No acute sinusitis. Mastoid air cells: Unremarkable as visualized. No mastoid effusion. IMPRESSION: No evidence of acute intracranial pathology. Electronically signed by: Shy Burgess MD 07/26/24 01:16 AM
[2024-07-26] MEDS: MAGNESIUM SULFATE / D5W 1 GM/100 ML BAG IV SCH (01:56)
[2024-07-26] MEDS: POTASSIUM CHLORIDE / WTR 10 MEQ/100 ML PLCT IV SCH (01:56)
[2024-07-26] MEDS: POTASSIUM CHLORIDE CRTAB 20 MEQ TABCR PO STA (01:58)
[2024-07-26] MEDS ORDERED: ONDANSETRON INJ 2 MG/ML 2 ML VIAL IV PRN (02:49)
[2024-07-26] MEDS ORDERED: CARBOHYDRATES FOR HYPOGLYCEMIA PO PRN (02:49)
[2024-07-26] MEDS ORDERED: ACETAMINOPHEN 325 MG TAB PO PRN (02:49)
[2024-07-26] MEDS ORDERED: DEXTROSE 50% 50 ML SYRINGE IV PRN (02:49)
[2024-07-26] MEDS ORDERED: GLUCOSE 40% GEL 15 GM TUBE PO PRN (02:49)
[2024-07-26] MEDS ORDERED: DOCUSATE SODIUM 100 MG CAP PO PRN (02:49)
[2024-07-26] MEDS ORDERED: GLUCAGON FOR INJ 1 MG VIAL SQ PRN (02:49)
[2024-07-26] MEDS ORDERED: GLUCOSE 10 TAB/TUBE PO PRN (02:49)
[2024-07-26] MEDS: LACTATED RINGER'S 1,000 ML IV SCH (03:07)
[2024-07-26] MEDS: 4.5GM X1 IV STA (03:35)
[2024-07-26 07:47] LABS: Basophils # (auto) 0.04 K/uL (0.00-0.20); Basophils % (auto) 0.4 %; Eosinophils # (auto) 0.08 K/uL (0.00-0.50); Eosinophils % (auto) 0.8 %; Hematocrit (blood only) 40.9 % (42.0-52.0); Hemoglobin 13.7 g/dl (14.0-18.0); Immature Granulocytes # (auto) 0.04 K/uL (0.01-0.20); Immature Granulocytes % (auto) 0.4 %; Lymphocytes # (auto) 1.18 K/uL (1.20-3.40); Lymphocytes % (auto) 11.6 %; Mean Corpuscular Hemoglobin 31.4 pg (25.0-34.0); Mean Corpuscular Hgb Conc 33.5 g/dL (32.0-36.0); Mean Corpuscular Volume 93.8 fL (80.0-100.0); Monocytes # (auto) 0.88 K/uL (0.11-0.59); Monocytes % (auto) 8.7 %; Neutrophils # (auto) 7.95 K/uL (1.40-6.50); Neutrophils % (auto) 78.1 %; Platelet Count 222 K/uL (130-400); RDW Coefficient of Variation 14.2 % (11.5-14.5); RDW Standard Deviation 48.5 fL (36.4-46.3); Red Blood Count 4.36 M/uL (4.70-6.10); White Blood Count 10.17 K/ul (4.8-10.8)
[2024-07-26] MEDS: FINASTERIDE 5 MG TAB PO SCH (08:16)
[2024-07-26] MEDS: ASPIRIN 81 MG ECTAB PO SCH (08:16)
[2024-07-26] MEDS: ENALAPRIL MALEATE 5 MG TAB PO SCH (08:16)
[2024-07-26] MEDS: PIPERACILLIN/TAZOBACTAM 4.5 GM/100 ML BAG IV SCH (08:22)
[2024-07-26 08:33] LABS: Albumin Globulin Ratio 1.5 (0.9-2); Albumin Level 3.3 gm/dl (3.4-5.0); BUN Creatinine Ratio 19.6 (10-20); Bilirubin,Total 1.1 mg/dl (0.2-1.0); Calcium 7.8 mg/dl (8.6-10.3); Creatinine Clr Calc Pharmacy 65.7 ml/min; Globulin 2.2 gm/dl (2.5-4.0); Total Protein 5.5 gm/dl (6.0-8.3)
[2024-07-26] MEDS: INSULIN ASPART PER UNIT CHARGE SC SCH (08:52)
--- NOTE | 2024-07-26 10:03 | Hospitalist Progress Note ---
Date of Service July 26, 2024 Assessment & Plan (1) Rhabdomyolysis: Plan: 84-year-old male with past medical history of BPH, CKD, DM 2, sleep apnea, hypertension who presents after he lowered himself to the floor and was too weak to stand and was on the ground for around 2 days. He is admitted for rhabdomyolysis and also found to have evidence of left lower lobe pneumonia on admission. Weakness Multifactorial, likely chronic deconditioning with possible additional weakness in the setting of pneumonia PT/[place] [address] Downtrending 16824 Continue IV FM until CK is at least less than 8000, or unless evidence of volume overload develops. continue to monitor for potential heme induced kidney injury Creatinine normal at baseline, remained stable at 0.97 Mild transaminitis likely from rhabdo. No abdominal pain or obstructive symptoms Elevated troponin, suspect demand With volume contraction and demand after being found down/dehydrated Troponin 240 on admission, steadily downtrending No chest pain No acute ischemic changes Follow clinically Left lower lobe pneumonia Chest x-ray with left lower lobe infiltrate Nontoxic, patient is not septic. 2 L oxygen requirement Continue Zosyn, tolerating this well Sputum culture pending, MRSA nasal swab ordered Serial chest x-ray ordered to evaluate hypoxia. This may be due to his pneumonia however has also been on fluids for his rhabdo with a slightly elevated BNP and is at risk for volume overload. He does not have a prior history of heart failure and his last tress echo was negative for ischemia and with LVEF of 60% Chronic stable issues Type II DM: Metformin held, continue SSI. Goal BSG [id number] OSACPAP hs ordered HLDhold statin with transaminitis above HTNholding HCTZ, continue ACEi BPHcontinue finasteride Increased ferritinconcern for malignancy, elevated PSA, being followed by PCP and urology GERDcontinue PPI VTE ppx: SCDs, low risk and fall risk Diet: T2DM Dispo: med/telemetry (2) Hypomagnesemia: (3) T2DM (type 2 diabetes mellitus): (4) Pneumonia: (5) Fall: Admission and Anticipated Discharge Date Admission Date: July 26, 2024 Subjective Seen the bedside. Pleasant no acute distress. Reports that he felt generally weak the last few days although does not think he felt any more weak than his typical. Reports he went up to go to the bathroom, was able to get back to the bed and got up again but felt very tired and was not able to stand and lowered himself to the floor. He reports he did not fall or strike his head or lose consciousness, but was too weak to stand back up. Does have a cough. No chest pain chest pressure. Has not brought anything up with his cough Physical Exam Physical Exam: General: A&Ox3. NAD. Cooperative. HEENT: Atraumatic, normocephalic. Pulm: Diminished, slightly coarse left greater than right in the bases. Cardiac: RRR, -mrg. Radial pulses intact and symmetrical. Extremities: Warm and dry. Moving all extremities equally. Very easily fatigued Results & Data Results & Data Vital Signs (Past 12 Hours) Vital Signs Temp Pulse Pulse Pulse Resp BP BP 07/26/24 07:44 36.4 C L 62 18 118/67 07/26/24 07:25 07/26/24 05:47 67 07/26/24 03:11 69 07/26/24 02:55 07/26/24 02:55 36.7 C 85 18 148/79 H 07/26/24 02:23 07/26/24 02:12 63 24 07/26/24 02:03 24 07/26/24 02:00 153/77 H 07/26/24 02:00 153/77 H 07/26/24 02:00 153/77 H 07/26/24 02:00 153/77 H 07/26/24 02:00 153/77 H 07/26/24 02:00 153/77 H 07/26/24 02:00 153/77 H 07/26/24 01:54 82 24 07/26/24 01:45 83 21 07/26/24 01:30 143/84 H 07/26/24 01:30 143/84 H 07/26/24 01:30 143/84 H 07/26/24 01:30 143/84 H 07/26/24 01:30 143/84 H 07/26/24 01:30 143/84 H 07/26/24 01:30 143/84 H 07/26/24 01:30 20 07/26/24 01:18 76 24 07/26/24 01:00 148/76 H 07/26/24 01:00 148/76 H 07/26/24 01:00 148/76 H 07/26/24 01:00 148/76 H 07/26/24 01:00 148/76 H 07/26/24 01:00 148/76 H 07/26/24 01:00 148/76 H 07/26/24 01:00 85 25 H 07/26/24 00:51 83 31 H 07/26/24 00:45 83 26 H 07/26/24 00:30 156/81 H 07/26/24 00:30 156/81 H 07/26/24 00:30 156/81 H 07/26/24 00:30 156/81 H 07/26/24 00:30 156/81 H 07/26/24 00:30 156/81 H 07/26/24 00:30 156/81 H 07/26/24 00:30 156/81 H 07/26/24 00:30 156/81 H 07/26/24 00:30 156/81 H 07/26/24 00:21 85 32 H 07/26/24 00:18 88 26 H 07/26/24 00:03 18 07/26/24 00:02 142/54 H 07/26/24 00:02 142/54 H 07/26/24 00:02 142/54 H 07/26/24 00:02 142/54 H 07/26/24 00:02 142/54 H 07/26/24 00:02 142/54 H 07/26/24 00:02 142/54 H 07/26/24 00:02 142/54 H 07/26/24 00:02 142/54 H 07/26/24 00:02 142/54 H 07/25/24 23:51 71 24 07/25/24 23:45 85 25 H 07/25/24 23:37 58 L 16 122/74 07/25/24 23:36 122/74 07/25/24 23:36 122/74 07/25/24 23:36 122/74 07/25/24 23:36 122/74 07/25/24 23:36 122/74 07/25/24 23:36 122/74 07/25/24 23:36 122/74 07/25/24 23:36 122/74 07/25/24 23:36 122/74 07/25/24 23:36 122/74 07/25/24 23:27 83 29 H 07/25/24 22:51 91 H 25 H 07/25/24 22:47 108 H 07/25/24 22:45 90 26 H 07/25/24 22:31 07/25/24 22:21 75 24 07/25/24 22:09 133/70 07/25/24 22:09 133/70 07/25/24 22:09 133/70 07/25/24 22:09 133/70 07/25/24 22:09 133/70 07/25/24 22:09 133/70 07/25/24 22:09 133/70 07/25/24 22:09 133/70 07/25/24 22:09 133/70 07/25/24 22:09 133/70 07/25/24 22:09 133/70 07/25/24 22:06 84 26 H Pulse Ox O2 Del Method O2 Flow Rate 07/26/24 07:44 94 Nasal Cannula 2 07/26/24 07:25 Nasal Cannula 2 07/26/24 05:47 07/26/24 03:11 07/26/24 02:55 Nasal Cannula 2 07/26/24 02:55 95 Nasal Cannula 2 07/26/24 02:23 Nasal Cannula 2 07/26/24 02:12 92 07/26/24 02:03 92 07/26/24 02:00 07/26/24 02:00 07/26/24 02:00 07/26/24 02:00 07/26/24 02:00 07/26/24 02:00 07/26/24 02:00 07/26/24 01:54 98 07/26/24 01:45 07/26/24 01:30 07/26/24 01:30 07/26/24 01:30 07/26/24 01:30 07/26/24 01:30 07/26/24 01:30 07/26/24 01:30 07/26/24 01:30 94 07/26/24 01:18 96 07/26/24 01:00 07/26/24 01:00 07/26/24 01:00 07/26/24 01:00 07/26/24 01:00 07/26/24 01:00 07/26/24 01:00 07/26/24 01:00 100 07/26/24 00:51 100 07/26/24 00:45 100 07/26/24 00:30 07/26/24 00:30 07/26/24 00:30 07/26/24 00:30 07/26/24 00:30 07/26/24 00:30 07/26/24 00:30 07/26/24 00:30 07/26/24 00:30 07/26/24 00:30 07/26/24 00:21 91 07/26/24 00:18 96 07/26/24 00:03 99 07/26/24 00:02 07/26/24 00:02 07/26/24 00:02 07/26/24 00:02 07/26/24 00:02 07/26/24 00:02 07/26/24 00:02 07/26/24 00:02 07/26/24 00:02 07/26/24 00:02 07/25/24 23:51 91 07/25/24 23:45 96 07/25/24 23:37 94 Nasal Cannula 2 07/25/24 23:36 07/25/24 23:36 07/25/24 23:36 07/25/24 23:36 07/25/24 23:36 07/25/24 23:36 07/25/24 23:36 07/25/24 23:36 07/25/24 23:36 07/25/24 23:36 07/25/24 23:27 92 07/25/24 22:51 07/25/24 22:47 07/25/24 22:45 07/25/24 22:31 Nasal Cannula 07/25/24 22:21 99 07/25/24 22:09 07/25/24 22:09 07/25/24 22:09 07/25/24 22:09 07/25/24 22:09 07/25/24 22:09 07/25/24 22:09 07/25/24 22:09 07/25/24 22:09 07/25/24 22:09 07/25/24 22:09 92 Nasal Cannula 07/25/24 22:06 87 L Room Air PG Care Time/CCT Total # of Minutes Spent Total Time Spent with Patient: Total time spent is greater than 50% in coordination of care (as documented) at patient's floor/unit and/or counseling patient: Coding Level of Care Code 61645 SUB INP/OBS CARE 3/50MIN Diagnoses Rhabdomyolysis M62.82 Hypomagnesemia E83.42 T2DM (type 2 diabetes mellitus) E11.9 Pneumonia J18.9 Fall W19.XXXA
--- NOTE | 2024-07-26 10:30 | XRay Report ---
XR chest 1V portable CLINICAL HISTORY: pulm edema eval COMPARISON STUDY: 07/25/2024 FINDINGS: No significant interval change has occurred. Small left pleural effusion and patchy left ba silar infiltrate or persistent. No new or adverse change is identified elsewhere. Right lung remains clear. IMPRESSION: Stable exam demonstrating small left pleural effusion and small, patchy left basilar inf iltrate. ACT 112: Negative or not required by law. Electronically signed by: Ifrah Delacruz M.D. 07/26/2024 10:29 AM
[2024-07-26] MEDS: BIMATOPROST 0.01% OP SOLN 2.5 ML BTL OP SCH (20:56)
[2024-07-26] MEDS: MELATONIN 3 MG TAB PO PRN (20:57)
[2024-07-26] MEDS: PANTOprazole 40 MG TAB PO SCH (20:57)
[2024-07-26] MEDS: BRIMONIDINE TARTRATE 0.2% 5ML OP SCH (20:57)
[2024-07-26] MEDS: TIMOLOL MALEATE 0.5% OP SOLN 5 ML BTL OP SCH (21:01)
--- NOTE | 2024-07-27 06:39 | Electrocardiogram Report ---
Test Reason : Blood Pressure : */* mmHG Vent. Rate : 77 BPM Atrial Rate : 77 BPM P-R Int : 162 ms QRS Dur : 70 ms QT Int : 352 ms P-R-T Axes : 49 4 4 degrees QTcB Int : 398 ms Sinus rhythm with Premature atrial complexes with Aberrant conduction Nonspecific T wave abnormality Abnormal ECG No previous ECGs available Confirmed by Jass Mott ([id number] on 07/27/2024 6:39:22 AM Referred By: REFERRED SELF Confirmed By: Jass Mott
[2024-07-27 07:08] LABS: Basophils # (auto) 0.05 K/uL (0.00-0.20); Basophils % (auto) 0.5 %; Eosinophils # (auto) 0.22 K/uL (0.00-0.50); Eosinophils % (auto) 2.4 %; Hemoglobin 13.3 g/dl (14.0-18.0); Immature Granulocytes # (auto) 0.03 K/uL (0.01-0.20); Immature Granulocytes % (auto) 0.3 %; Lymphocytes # (auto) 1.03 K/uL (1.20-3.40); Lymphocytes % (auto) 11.3 %; Mean Corpuscular Hemoglobin 30.6 pg (25.0-34.0); Mean Corpuscular Hgb Conc 32.4 g/dL (32.0-36.0); Mean Corpuscular Volume 94.3 fL (80.0-100.0); Mean Platelet Volume 10.2 fL (9.4-12.4); Monocytes # (auto) 0.71 K/uL (0.11-0.59); Monocytes % (auto) 7.8 %; Neutrophils # (auto) 7.09 K/uL (1.40-6.50); Neutrophils % (auto) 77.7 %; Platelet Count 213 K/uL (130-400); RDW Coefficient of Variation 14.3 % (11.5-14.5); RDW Standard Deviation 49.6 fL (36.4-46.3); Red Blood Count 4.35 M/uL (4.70-6.10); White Blood Count 9.13 K/ul (4.8-10.8)
[2024-07-27 07:24] LABS: Calcium 8.2 mg/dl (8.6-10.3); Creatinine Clr Calc Pharmacy 63.7 ml/min; Potassium 3.5 mmol/L (3.5-5.1)
[2024-07-27 07:59] LABS: Albumin Globulin Ratio 1.5 (0.9-2); Albumin Level 3.3 gm/dl (3.4-5.0); Bilirubin,Total 0.9 mg/dl (0.2-1.0); Globulin 2.2 gm/dl (2.5-4.0); Magnesium 1.8 mg/dl (1.7-2.4); Total Protein 5.5 gm/dl (6.0-8.3)
[2024-07-27] MEDS: LACTATED RINGER'S 1,000 ML IV SCH (08:38)
--- NOTE | 2024-07-27 14:34 | Hospitalist Progress Note ---
Date of Service July 27, 2024 Assessment & Plan (1) Rhabdomyolysis: Plan: 84-year-old male with past medical history of BPH, CKD, DM 2, sleep apnea, hypertension who presents after he lowered himself to the floor and was too weak to stand and was on the ground for around 2 days. He is admitted for rhabdomyolysis and also found to have evidence of left lower lobe pneumonia on admission. Weakness Multifactorial, likely chronic deconditioning with possible additional weakness in the setting of pneumonia Continue PT/OT. High risk for falls and is not safe to return home. Recommended for acute rehab when medically [place] [address] Downtrending 02423 Continue IV FM until CK is at least less than 5000, or unless evidence of volume overload develops. continue to monitor for potential heme induced kidney injury Creatinine normal at baseline, remained stable at 0.97 Mild transaminitis likely from rhabdo. No abdominal pain or obstructive symptoms Suspect we will be able to stop IV fluids pending oral intake and CK over the next day or 2. Elevated troponin, suspect demand With volume contraction and demand after being found down/dehydrated Troponin 240 on admission, steadily downtrending No chest pain No acute ischemic changes Follow clinically Left lower lobe pneumonia Chest x-ray with left lower lobe infiltrate Nontoxic, patient is not septic. Has been weaned to room air Sputum culture pending Serial chest x-ray ordered to evaluate hypoxia. Remains with left lower lobe infiltrate Patient reports he had a penicillin allergy but has been tolerating Zosyn well. Will narrow to Rocephin, target cefdinir for discharge if doing well. Chronic stable issues Type II DM: Metformin held, continue SSI. Goal BSG 240804 OSACPAP hs ordered HLDhold statin with transaminitis above HTNholding HCTZ, continue ACEi BPHcontinue finasteride Increased ferritinconcern for malignancy, elevated PSA, being followed by PCP and urology GERDcontinue PPI VTE ppx: SCDs, low risk and fall risk Diet: T2DM Dispo: med/telemetry (2) Hypomagnesemia: (3) T2DM (type 2 diabetes mellitus): (4) Pneumonia: (5) Fall: Admission and Anticipated Discharge Date Admission Date: July 26, 2024 Subjective Seen at the bedside and again on afternoon reassessment. Feels well. Eating drink comfortably. Feels he is voiding normally. No dysuria. No lightheadedness dizziness. Appreciative update being given by phone to family. CK remains greater than 5000. On afternoon reassessment reports that he was seen by PT and reports he did feel weak with this. Has been told that he is unsafe to return home alone. No additional questions or concerns. No chest pain chest pressure shortness of breath fever or chills Physical Exam Physical Exam: General: A&Ox3. NAD. Cooperative. HEENT: Atraumatic, normocephalic. Vision and hearing grossly intact Pulm: CTAB A&P. -wheezes, -rales, -rhonchi. Symmetrical chest rise. No increased work of breathing. No respiratory distress. Cardiac: RRR, -mrg. Radial pulses intact and symmetrical. Abdominal: Nontender, nondistended, soft. BS present. Skin: L lateral buttock with ~4cm round pressure would without skin breakdown/discharge/warmth. Results & Data Results & Data Vital Signs (Past 12 Hours) Vital Signs Temp Pulse Pulse Resp BP Pulse Ox O2 Del Method 07/27/24 11:13 36.7 C 59 L 18 137/69 90 Room Air 07/27/24 07:16 36.8 C 86 18 137/71 90 Room Air 07/27/24 05:45 84 07/27/24 03:24 36.5 C 74 16 136/73 90 Room Air PG Care Time/CCT Total # of Minutes Spent Total Time Spent with Patient: Total time spent is greater than 50% in coordination of care (as documented) at patient's floor/unit and/or counseling patient: Coding Level of Care Code 19953 SUB INP/OBS CARE 3/50MIN Diagnoses Rhabdomyolysis M62.82 Hypomagnesemia E83.42 T2DM (type 2 diabetes mellitus) E11.9 Pneumonia J18.9 Fall W19.XXXA
[2024-07-27] MEDS ORDERED: cefTRIAXone SODIUM 1,000 MG/50 ML BAG IV SCH (14:45)
[2024-07-27] MEDS: PLASMA-LYTE A 1,000 ML IV SCH (15:05)
[2024-07-27] MEDS: cefTRIAXone SODIUM 2,000 MG/50 ML BAG IV SCH (15:10)
[2024-07-27] MEDS: DOXYCYCLINE HYCLATE 100 MG in DEXTROSE 5% MINI-B 100 ML IV SCH (15:50)
[2024-07-28 06:35] LABS: Basophils # (auto) 0.06 K/uL (0.00-0.20); Basophils % (auto) 0.8 %; Eosinophils % (auto) 2.6 %; Hematocrit (blood only) 38.5 % (42.0-52.0); Hemoglobin 12.9 g/dl (14.0-18.0); Immature Granulocytes # (auto) 0.03 K/uL (0.01-0.20); Immature Granulocytes % (auto) 0.4 %; Lymphocytes # (auto) 1.38 K/uL (1.20-3.40); Lymphocytes % (auto) 18.1 %; Mean Corpuscular Hemoglobin 31.7 pg (25.0-34.0); Mean Corpuscular Hgb Conc 33.5 g/dL (32.0-36.0); Mean Corpuscular Volume 94.6 fL (80.0-100.0); Mean Platelet Volume 9.7 fL (9.4-12.4); Monocytes # (auto) 0.68 K/uL (0.11-0.59); Monocytes % (auto) 8.9 %; Neutrophils # (auto) 5.27 K/uL (1.40-6.50); Neutrophils % (auto) 69.2 %; Platelet Count 199 K/uL (130-400); RDW Coefficient of Variation 14.2 % (11.5-14.5); RDW Standard Deviation 49.1 fL (36.4-46.3); Red Blood Count 4.07 M/uL (4.70-6.10); White Blood Count 7.62 K/ul (4.8-10.8)
[2024-07-28 06:56] LABS: Albumin Globulin Ratio 1.5 (0.9-2); Albumin Level 3.2 gm/dl (3.4-5.0); BUN Creatinine Ratio 11.6 (10-20); Bilirubin,Total 0.6 mg/dl (0.2-1.0); Globulin 2.2 gm/dl (2.5-4.0); Potassium 3.5 mmol/L (3.5-5.1); Total Protein 5.4 gm/dl (6.0-8.3)
--- NOTE | 2024-07-28 10:23 | Hospitalist Progress Note ---
Date of Service July 28, 2024 Assessment & Plan (1) Rhabdomyolysis: Plan: 84-year-old male with past medical history of BPH, CKD, DM 2, sleep apnea, hypertension who presents after he lowered himself to the floor and was too weak to stand and was on the ground for around 2 days. He is admitted for rhabdomyolysis and also found to have evidence of left lower lobe pneumonia on admission. Weakness Multifactorial, likely chronic deconditioning with possible additional weakness in the setting of pneumonia Continue PT/OT. High risk for falls and is not safe to return home further evaluation. Patient would like to review disposition planning with his will not be back until tomorrow. Call/voicemail left with patient's to review progression and care. CM following[place] [address] CK is down trusted to approximately 2.5K, now below 5000 and can discontinue IV fluids and encourage p.o. Creatinine normal at baseline, remained stable at 0.97 LFTs downtrending No evidence of heme induced renal injury, creatinine remains at baseline Elevated troponin, suspect demand With volume contraction and demand after being found down/dehydrated Troponin 240 on admission, steadily downtrending No chest pain No acute ischemic changes Follow clinically Left lower lobe pneumonia Chest x-ray with left lower lobe infiltrate Nontoxic, patient is not septic. Has been weaned to room air Sputum culture pending, uncollected. BC no growth to date Serial chest x-ray ordered to evaluate hypoxia. Remains with left lower lobe infiltrate Clinically doing well on Rocephin/doxycycline. No leukocytosis. No hypoxia. Complete 5 total days of antibiotics with cefdinir/doxycycline conversion on progression to outpatient Chronic stable issues Type II DM: Metformin held, continue SSI. Goal BSG [id number] OSACPAP hs ordered HLDhold statin with transaminitis above HTNholding HCTZ, continue ACEi BPHcontinue finasteride Increased ferritinconcern for malignancy, elevated PSA, being followed by PCP and urology GERDcontinue PPI VTE ppx: SCDs, low risk and fall risk Diet: T2DM Dispo: med/telemetry (2) Hypomagnesemia: (3) T2DM (type 2 diabetes mellitus): (4) Pneumonia: (5) Fall: Admission and Anticipated Discharge Date Admission Date: July 26, 2024 Subjective Seen the bedside. Feels well no concerns today. Hopeful to return home but open to potential rehab if needed, but notes would like to discuss this with his first who is currently away. Denies fever chills or sweats overnight. No dysuria. No flank pain or kidney pain. No abdominal pain. No chest pain chest pressure. No shortness of breath. No orthopnea Physical Exam Physical Exam: General: A&Ox3. NAD. Cooperative. HEENT: Atraumatic, normocephalic. Vision and hearing grossly intact Pulm: CTAB A&P. -wheezes, -rales, -rhonchi. Symmetrical chest rise. No increased work of breathing. No respiratory distress. Cardiac: RRR, -mrg. Radial pulses intact and symmetrical. Abdominal: Nontender, nondistended, soft. BS present. Skin: L lateral buttock round pressure would without skin breakdown/discharge/warmth no change from prior Results & Data Results & Data Vital Signs (Past 12 Hours) Vital Signs Temp Pulse Pulse Resp BP Pulse Ox O2 Del Method 07/28/24 10:00 Room Air 07/28/24 09:23 40 L 07/28/24 07:10 37.0 C 72 18 157/89 H 96 Room Air 07/28/24 03:30 36.7 C 71 16 155/72 H 91 Room Air PG Care Time/CCT Total # of Minutes Spent Total Time Spent with Patient: Total time spent is greater than 50% in coordination of care (as documented) at patient's floor/unit and/or counseling patient: Coding Level of Care Code 68733 SUB INP/OBS CARE 2/35MIN Diagnoses Rhabdomyolysis M62.82 Hypomagnesemia E83.42 T2DM (type 2 diabetes mellitus) E11.9 Pneumonia J18.9 Fall W19.XXXA
[2024-07-28] MEDS: METOPROLOL TARTRATE 1 MG/ML VIAL IV STA (13:20)
[2024-07-28] MEDS: MAGNESIUM SULFATE / D5W 1 GM/100 ML BAG IV ONE (13:23)
--- NOTE | 2024-07-28 13:23 | Billing Data ---
Date of Service July 28, 2024 Coding Level of Care Code PROLONG IP/OBS E/M EA 15 MIN Time Spent (min) 35 Comment In addition to all other care on diagnosis, initial treatment anticoag 2/2 new afib w/ rvr
--- NOTE | 2024-07-28 18:43 | XCELERA ---
[id number]
[2024-07-28] MEDS: APIXABAN 5 MG TABLET PO SCH (20:04)
[2024-07-28] MEDS: METOPROLOL TARTRATE 25 MG TAB PO SCH (20:04)
--- NOTE | 2024-07-28 21:22 | Electrocardiogram Report ---
Test Reason : Blood Pressure : */* mmHG Vent. Rate : 141 BPM Atrial Rate : 92 BPM P-R Int : * ms QRS Dur : 76 ms QT Int : 302 ms P-R-T Axes : * 122 -35 degrees QTcB Int : 462 ms Atrial fibrillation with rapid ventricular response Lateral infarct , age undetermined Nonspecific ST and T wave abnormality Abnormal ECG When compared with ECG of 26-Jun-2012 10:54, Atrial fibrillation has replaced Sinus rhythm Lateral infarct is now Present Confirmed by Jass Mott ([id number]) on 07/28/2024 9:22:36 PM Referred By: REFERRED SELF Confirmed By: Jass Mott
[2024-07-29] MEDS: METOPROLOL TARTRATE 1 MG/ML VIAL IV STA (05:53)
[2024-07-29 07:04] LABS: Basophils # (auto) 0.06 K/uL (0.00-0.20); Basophils % (auto) 0.8 %; Eosinophils # (auto) 0.23 K/uL (0.00-0.50); Hematocrit (blood only) 41.9 % (42.0-52.0); Hemoglobin 13.8 g/dl (14.0-18.0); Immature Granulocytes # (auto) 0.03 K/uL (0.01-0.20); Immature Granulocytes % (auto) 0.4 %; Lymphocytes # (auto) 1.75 K/uL (1.20-3.40); Lymphocytes % (auto) 22.9 %; Mean Corpuscular Hemoglobin 31.2 pg (25.0-34.0); Mean Corpuscular Hgb Conc 32.9 g/dL (32.0-36.0); Mean Corpuscular Volume 94.6 fL (80.0-100.0); Mean Platelet Volume 9.9 fL (9.4-12.4); Monocytes # (auto) 0.68 K/uL (0.11-0.59); Monocytes % (auto) 8.9 %; Neutrophils # (auto) 4.88 K/uL (1.40-6.50); Platelet Count 248 K/uL (130-400); RDW Coefficient of Variation 14.3 % (11.5-14.5); RDW Standard Deviation 49.6 fL (36.4-46.3); Red Blood Count 4.43 M/uL (4.70-6.10); White Blood Count 7.63 K/ul (4.8-10.8)
[2024-07-29 07:25] LABS: BUN Creatinine Ratio 10.4 (10-20); Calcium 9.1 mg/dl (8.6-10.3); Creatinine Clr Calc Pharmacy 66.4 ml/min; Potassium 3.7 mmol/L (3.5-5.1)
[2024-07-29] MEDS ORDERED: METOPROLOL SUCC 50MG EXT REL TAB PO STA (08:16)
[2024-07-29] MEDS: METOPROLOL SUCC 50MG EXT REL TAB PO SCH (09:35)
[2024-07-29] MEDS: COUGH DROP (SUGAR FREE) LOZ 24 LOZ/1 BOX BUCCAL PRN (09:45)
--- NOTE | 2024-07-29 10:43 | Hospitalist Progress Note ---
Date of Service July 29, 2024 Assessment & Plan (1) Rhabdomyolysis: Plan: 84-year-old male with past medical history of BPH, CKD, DM 2, sleep apnea, hypertension who presents after he lowered himself to the floor and was too weak to stand and was on the ground for around 2 days. He is admitted for rhabdomyolysis and also found to have evidence of left lower lobe pneumonia on admission. Weakness Multifactorial, likely chronic deconditioning with possible additional weakness in the setting of pneumonia Continue PT/OT. Pending [facility] referral, if declined anticipate [facility] Patient's will be returning home late after 7 PM this evening, will begin to help facilitate and discuss placement choices with patient tomorrow morning. Referrals have been made to [facility], [facility] assisting with SNF referrals if denied. Given his runs of PAT, new beta-bryan addition which may require titration, high risk of intermittent A-fib he would benefit from daily evaluations at rehab to titrate his beta-bryan and monitor for hypotension over the next [place] initially [address] CK down trended to 2500, further testing discontinued and transition to oral fluids Creatinine normal at baseline, remained stable at 0.97 LFTs downtrending No evidence of heme induced renal injury, creatinine remains at baseline Atrial fibrillation/PAT With PAT and atrial irritability on monitor, did have new atrial fibrillation which converted back to sinus afternoon of 07/28 after initiation of metoprolol For/benefits of anticoagulation discussed. Given [id number] greater than 3 anticoagulation is indicated. Does not meet criteria for dose reduction. Started on apixaban 5 mg p.o. twice daily Multiple provoking factors including volume depletion and pneumonia. Echo is with a EF 55-60%. No regional wall more mccormack abnormalities. Patient was in A-fib at time of echo. Given normal stress test for ischemia 01/2024, no wall motion abnormalities despite being in RVR at the time of echo and downtrending troponin without any clinical chest pain lower suspicion for ischemia as cause. Can follow-up with cardiology as an outpatient. Elevated troponin, suspect demand With volume contraction and demand after being found down/dehydrated Troponin 240 on admission, down trended No chest pain at any point including with his A-fib No acute ischemic changes Follow clinically Left lower lobe pneumonia Chest x-ray with left lower lobe infiltrate Nontoxic, patient is not septic. Has been weaned to room air Sputum culture pending, uncollected. BC no growth to date Serial chest x-ray w/ A-fib --> no rate related failure, remains with left lower lobe infiltrate Clinically doing well on Rocephin/doxycycline. No leukocytosis. No hypoxia. Complete 5 total days of antibiotics with cefdinir/doxycycline conversion on progression to outpatient Chronic stable issues Type II DM: Metformin held, continue SSI. Goal BSG [id number] OSACPAP hs ordered HLDhold statin with transaminitis above HTNholding HCTZ, continue ACEi BPHcontinue finasteride Increased ferritinconcern for malignancy, elevated PSA, being followed by PCP and urology GERDcontinue PPI VTE ppx: SCDs, low risk and fall risk Diet: T2DM Dispo: med/telemetry (2) Hypomagnesemia: (3) T2DM (type 2 diabetes mellitus): (4) Pneumonia: (5) Fall: Admission and Anticipated Discharge Date Admission Date: July 26, 2024 Subjective Seen at the bedside Returned to sinus yesterday afternoon, remains in sinus but with frequent atrial tachycardia. Asymptomatic with this Feels well Denies chest pain or chest pressure at any point Denies shortness of breath Physical Exam Physical Exam: General: A&Ox3. NAD. Cooperative. HEENT: Atraumatic, normocephalic. Vision and hearing grossly intact Pulm: CTAB A&P. -wheezes, -rales, -rhonchi. Symmetrical chest rise. No increased work of breathing. No respiratory distress. Cardiac: RRR, -mrg. Radial pulses intact and symmetrical. Abdominal: Nontender, nondistended, soft. BS present. Results & Data Results & Data Vital Signs (Past 12 Hours) Vital Signs Temp Pulse Pulse Resp BP Pulse Ox O2 Del Method 07/29/24 09:04 Room Air 07/29/24 07:31 37 C 80 18 179/92 H 92 Room Air 07/29/24 07:13 62 07/29/24 03:52 36.5 C 72 18 186/52 H 91 Room Air 07/28/24 23:13 36.4 C L 54 L 16 127/67 91 Room Air PG Care Time/CCT Total # of Minutes Spent Total Time Spent with Patient: Total time spent is greater than 50% in coordination of care (as documented) at patient's floor/unit and/or counseling patient: Coding Level of Care Code 31333 SUB INP/OBS CARE 50MIN Diagnoses Rhabdomyolysis M62.82 Hypomagnesemia E83.42 T2DM (type 2 diabetes mellitus) E11.9 Pneumonia J18.9 Fall W19.XXXA
[2024-07-29] MEDS: METOPROLOL SUCC 25MG EXT REL TAB PO SCH (19:43)
[2024-07-30 06:30] LABS: Basophils # (auto) 0.06 K/uL (0.00-0.20); Basophils % (auto) 0.9 %; Eosinophils # (auto) 0.29 K/uL (0.00-0.50); Eosinophils % (auto) 4.2 %; Hematocrit (blood only) 38.7 % (42.0-52.0); Hemoglobin 12.7 g/dl (14.0-18.0); Immature Granulocytes # (auto) 0.04 K/uL (0.01-0.20); Immature Granulocytes % (auto) 0.6 %; Lymphocytes # (auto) 1.34 K/uL (1.20-3.40); Lymphocytes % (auto) 19.4 %; Mean Corpuscular Hemoglobin 31.2 pg (25.0-34.0); Mean Corpuscular Hgb Conc 32.8 g/dL (32.0-36.0); Mean Corpuscular Volume 95.1 fL (80.0-100.0); Mean Platelet Volume 9.9 fL (9.4-12.4); Monocytes % (auto) 10.1 %; Neutrophils # (auto) 4.47 K/uL (1.40-6.50); Neutrophils % (auto) 64.8 %; Platelet Count 233 K/uL (130-400); RDW Coefficient of Variation 14.1 % (11.5-14.5); RDW Standard Deviation 48.9 fL (36.4-46.3); Red Blood Count 4.07 M/uL (4.70-6.10)
[2024-07-30 06:49] LABS: BUN Creatinine Ratio 9.4 (10-20); Calcium 8.7 mg/dl (8.6-10.3); Creatinine Clr Calc Pharmacy 66.6 ml/min; Potassium 3.4 mmol/L (3.5-5.1)
[2024-07-30] MEDS: POTASSIUM CHLORIDE CRTAB 20 MEQ TABCR PO STA (09:23)
--- NOTE | 2024-07-30 12:32 | Hospitalist Progress Note ---
Date of Service July 30, 2024 Assessment & Plan (1) Rhabdomyolysis: (2) Hypomagnesemia: Plan: 1.2 upon admission repleted and normalized repeat level tomorrow for stability (3) T2DM (type 2 diabetes mellitus): (4) Pneumonia: (5) Fall: Plan: events of such uncertain led to rhabdomyolysis see above Plan 84-year-old male with BPH, CKD, DM 2, sleep apnea, hypertension who presented after he was found on the ground at his home. Was likely on the ground for 2 days. admitted for rhabdomyolysis and L[place]. [place] [address] CK down trended to 2500; will repeat CPK in am to ensure normalization Creatinine stable Transaminitis may have been 2nd to rhabdo as well - repeat ast/alt in am Atrial fibrillation/PAT new atrial fibrillation which converted back to NSR on 07/28/24 - initiated on meto succ for rate control - currently 25mg BID [id number] greater than 3 thus apixaban 5 mg p.o. twice daily started. Multiple provoking factors including volume depletion and pneumonia. Echo EF 55-60%. No valvular disease. - HRs are dipping into the 40s at times thus will lower meto succ to 25mg once daily Elevated troponin Peak Troponin 240 on admission - likely 2nd to myocardial demand ischemia in setting of his fall, rhabdomyolysis, LLL pneumonia, etc. Left lower lobe pneumonia Has improved on rocephin/doxy IV; will stop both, change to omnicef + doxy PO x 4 more days then stop abx --Will need repeat imaging in 4-6 weeks to ensure radiographic resolution Chronic stable issues Type II DM: Metformin held, continue Novolog SSI OSACPAP hs HLDhold statin with transaminitis; repeat ast/alt am HTNholding HCTZ, continue BETSY BPHcontinue finasteride Increased ferritinconcern for malignancy, elevated PSA, being followed by PCP and urology GERDcontinue PPI Hypokalemia - replace, repeat BMP/mag in am Abd distension - check KUB x-ray today extensively updated at bedside today await repeat PT/OT evals tomorrow dispo - [facility] vs snf vs home Admission and Anticipated Discharge Date Admission Date: July 26, 2024 Subjective patient c/o sore throat started within the last 1-2 days eating fair-good denies pain in any location he has no recollection of his fall at home or the events leading up to it arrived home last pm - [place] and [place] got to the house she stated the house "was a mess" again he has no recollection of exactly what happened they ask about timing of when he might go home - discussed needing PT/OT evals again to determine dispo (rehab vs home) tele overnight - PAT occasionally but no a.fib episodes of bradycardia to low 40s Review of Systems Review of Systems: cv - no chest pain pulm - no dyspnea GI - no abd pain or N/V Physical Exam Physical Exam: gen - sitting in chair, NAD mouth - posterior throat with mild irritation, MMM otherwise; no obvious thrush neck - no JVD heart - irregular (extra beats), s1 s2, no murmur lungs - faint left lower lobe dry rales, otherwise CTA b/l; no wheeze abd - soft NT BS+; mildly distended ext - no edema, pulses 2+ b/l head - no signs of trauma musculo - scattered abrasions on knees but no signs of injury/trauma otherwise Results & Data Results & Data Vital Signs (Past 12 Hours) Vital Signs Temp Pulse Pulse Resp BP BP Pulse Ox 07/30/24 12:10 36.6 C 59 L 22 157/72 H 94 07/30/24 11:36 36.6 C 69 24 168/75 H 90 07/30/24 07:41 36.5 C 76 18 158/84 H 92 07/30/24 07:16 75 07/30/24 03:41 36.6 C 77 20 174/90 H 92 O2 Del Method 07/30/24 12:10 Room Air 07/30/24 11:36 Room Air 07/30/24 07:41 Room Air 07/30/24 07:16 07/30/24 03:41 Room Air Laboratory Results Laboratory Results - last 24 hr 07/30/24 07/30/24 07/30/24 05:45 08:10 12:01 WBC 6.90 RBC 4.07 L Hgb 12.7 L Hct 38.7 L MCV 95.1 MCH 31.2 MCHC 32.8 RDW Std Deviation 48.9 H RDW Coeff of Vincenzo 14.1 Plt Count 233 MPV 9.9 Immature Gran % (Auto) 0.6 Neut % (Auto) 64.8 Lymph % (Auto) 19.4 Brewster % (Auto) 10.1 Eos % (Auto) 4.2 Baso % (Auto) 0.9 Neut # (Auto) 4.47 Lymph # (Auto) 1.34 Brewster # (Auto) 0.70 H Eos # (Auto) 0.29 Baso # (Auto) 0.06 Immature Gran # (Auto) 0.04 Sodium 140 Potassium 3.4 L Chloride 105 Carbon Dioxide 31 Anion Gap 4 BUN 9 Creatinine 0.96 Est Cr Clr Drug Dosing 66.6 eGFR 78.43 BUN/Creatinine Ratio 9.4 L Glucose 144 H POC Glucose 136 H 166 H Calcium 8.7 07/30/24 07/30/24 17:07 20:25 WBC RBC Hgb Hct MCV MCH MCHC RDW Std Deviation RDW Coeff of Vincenzo Plt Count MPV Immature Gran % (Auto) Neut % (Auto) Lymph % (Auto) Brewster % (Auto) Eos % (Auto) Baso % (Auto) Neut # (Auto) Lymph # (Auto) Brewster # (Auto) Eos # (Auto) Baso # (Auto) Immature Gran # (Auto) Sodium Potassium Chloride Carbon Dioxide Anion Gap BUN Creatinine Est Cr Clr Drug Dosing eGFR BUN/Creatinine Ratio Glucose POC Glucose 151 H 184 H Calcium PG Care Time/CCT Total # of Minutes Spent Total Time Spent with Patient: Total time spent is greater than 50% in coordination of care (as documented) at patient's floor/unit and/or counseling patient: Coding Level of Care Code 83364 SUB INP/OBS CARE 3/50MIN Diagnoses Rhabdomyolysis M62.82 Hypomagnesemia E83.42 T2DM (type 2 diabetes mellitus) E11.9 Pneumonia J18.9 Fall W19.XXXA
--- NOTE | 2024-07-30 16:51 | XRay Report ---
EXAMINATION: X-ray abdomen minimum 2 view CLINICAL HISTORY: Early satiety abdominal distention PRIORS: None TECHNIQUE: Upright and supine AP abdomen images are submitted. FINDINGS: Overlying bowel gas and stool obscures fine bone detail. A small amount of formed stool present throughout the colon. No dilated loops of bowel. No air-fluid levels. No acute osseous abnormality. IMPRESSION: Small amount of formed stool throughout the colon with nondilated, nonobstructed bowel gas pattern Electronically signed by Yeni Pritchett 07-30-2024 4:51 PM
[2024-07-30] MEDS: FIRST - Mouthwash BLM 5 ML UDP PO SCH (17:20)
[2024-07-30] MEDS: DOXYCYCLINE HYCLATE 100 MG CAP PO SCH (20:31)
[2024-07-30] MEDS: CEFDINIR 300 MG CAP PO SCH (20:31)
[2024-07-31 07:56] LABS: BUN Creatinine Ratio 11.9 (10-20); Creatinine Clr Calc Pharmacy 63.7 ml/min; Magnesium 1.8 mg/dl (1.7-2.4); Potassium 3.9 mmol/L (3.5-5.1)
--- NOTE | 2024-07-31 19:23 | Hospitalist Progress Note ---
Date of Service July 31, 2024 Assessment & Plan (1) Rhabdomyolysis: (2) Hypomagnesemia: Plan: 1.2 upon admission repleted and normalized repeat level today wnl (3) T2DM (type 2 diabetes mellitus): (4) Pneumonia: (5) Fall: Plan: events of such uncertain as he was alone led to rhabdomyolysis Plan 84-year-old male with BPH, CKD, DM 2, sleep apnea, hypertension who presented after he was found on the ground at his home. Was likely on the ground for 2 days. admitted for rhabdomyolysis and LLL pneumonia. [place] [address] CK down trended to 2500 and today is nearly normal Creatinine stable Transaminitis may have been 2nd to rhabdo as well - repeat ast/alt essentially normal today Atrial fibrillation/PAT new atrial fibrillation which converted back to NSR on 07/28/24 - initiated on meto succ for rate control - was 25mg BID, but has had bradycardia on such, and thus will cut to 25mg daily [id number] greater than 3 thus apixaban 5 mg p.o. twice daily started. $33/month. Multiple provoking factors including volume depletion and pneumonia. Echo EF 55-60%. No valvular disease. Elevated troponin Peak Troponin 240 on admission - likely 2nd to myocardial demand ischemia in setting of his fall, rhabdomyolysis, LLL pneumonia, etc. Left lower lobe pneumonia Has improved on rocephin/doxy IV; stopped both, changed to omnicef + doxy PO x 4 more days then stop abx --Will need repeat imaging in 4-6 weeks to ensure radiographic resolution Chronic stable issues Type II DM: Metformin held, continue Novolog SSI OSACPAP hs HLD resume statin at d/c; transaminitis resolved HTNholding HCTZ, continue BETSY BPHcontinue finasteride Increased ferritinconcern for malignancy, elevated PSA, being followed by PCP and urology GERDcontinue PPI Hypokalemia - replaced and resolved Abd distension - gassy within the colon but no distended and no severe constipation on KUB; follow for now in light of him being down on the ground for 2 days with severely altered MS and retrograde amnesia of the event will obtain MRI brain to r/o subacute stroke(s) updated at bedside today passed PT/OT evals and can d/c home in am if MRI is negative Admission and Anticipated Discharge Date Admission Date: July 26, 2024 Subjective no events overnight denies dyspnea when he worked with PT today he did well and didn't have MILLER a little weaker than baseline but overall did well was present at bedside today and she feels he is improved she watched him walk and she thinks he did fairly well appetite has improved Review of Systems Review of Systems: gen - no fevers or chills HENT - sore throat has improved cv - no chest pain pulm - minimal cough GI - no N/V Physical Exam Physical Exam: gen - sitting in chair, NAD, looks good today mouth - posterior throat erythema is better today; MMM; no obvious thrush neck - no JVD heart - irregular (extra beats), s1 s2, no murmur lungs - faint left lower lobe dry rales, otherwise CTA b/l; no wheeze abd - soft NT BS+; mildly distended - same as yesterday ext - no edema, pulses 2+ b/l Results & Data Results & Data Vital Signs (Past 12 Hours) Vital Signs Temp Pulse Pulse Resp BP BP Pulse Ox 07/31/24 16:31 36.6 C 54 L 18 170/77 H 93 07/31/24 13:00 76 07/31/24 11:37 36.4 C L 56 L 18 147/74 H 92 O2 Del Method 07/31/24 16:31 Room Air 07/31/24 13:00 07/31/24 11:37 Room Air Laboratory Results Laboratory Results - last 24 hr 07/30/24 07/31/24 07/31/24 20:25 06:31 08:43 Sodium 141 Potassium 3.9 Chloride 104 Carbon Dioxide 31 Anion Gap 6 BUN 12 Creatinine 1.01 Est Cr Clr Drug Dosing 63.7 eGFR 73.79 BUN/Creatinine Ratio 11.9 Glucose 130 H POC Glucose 184 H 122 H Calcium 9.0 Magnesium 1.8 AST 40 H ALT 47 Total Creatine Kinase 345 H 07/31/24 07/31/24 11:57 17:05 Sodium Potassium Chloride Carbon Dioxide Anion Gap BUN Creatinine Est Cr Clr Drug Dosing eGFR BUN/Creatinine Ratio Glucose POC Glucose 144 H 113 H Calcium Magnesium AST ALT Total Creatine Kinase PG Care Time/CCT Total # of Minutes Spent Total Time Spent with Patient: Total time spent is greater than 50% in coordination of care (as documented) at patient's floor/unit and/or counseling patient: Coding Level of Care Code 90748 SUB INP/OBS CARE 350MIN Diagnoses Rhabdomyolysis M62.82 Hypomagnesemia E83.42 T2DM (type 2 diabetes mellitus) E11.9 Pneumonia J18.9 Fall W19.XXXA
[2024-07-31] MEDS: ENALAPRIL MALEATE 5 MG TAB PO SCH (21:34)
[2024-07-31] MEDS: METOPROLOL SUCC 25MG EXT REL TAB PO SCH (21:35)
--- NOTE | 2024-07-31 23:11 | Magnetic Resonance Report ---
Exam(s): MRI HEAD Without Contrast EXAM: MR Head Without Intravenous Contrast CLINICAL HISTORY: Reason for exam: recent falls, altered MS, a.fib; r/o CVA. TECHNIQUE: Magnetic resonance images of the head/brain without intravenous contrast in multiple planes. COMPARISON: CT July 25, 2024. FINDINGS: Brain: Extensive patchy areas of increased signal in the white matter on FLAIR and T2-weighted sequences. These are nonspecific but usually due to chronic, small vessel ischemic change. No acute edema, hemorrhage or abnormal mass-effect. No restricted diffusion to indicate acute infarct. Ventricles: Unremarkable. No ventriculomegaly. Bones/joints: Unremarkable. No acute fracture. Sinuses: Unremarkable as visualized. No acute sinusitis. Mastoid air cells: Unremarkable as visualized. No mastoid effusion. Orbits: Unremarkable as visualized. IMPRESSION: No acute findings in the head/brain. Electronically signed by: Juanito Mitchell MD 07/31/24 23:10 PM
[2024-08-01 07:23] VITALS: RESP 18
--- NOTE | 2024-08-01 10:46 | Discharge Summary ---
Discharge Summary Date of Service date of admission - July 26, 2024 date of discharge - August 01, 2024 Principal Dx & Hospital Course #1 = Principal Diagnosis (1) Rhabdomyolysis: (2) Pneumonia: (3) Hypomagnesemia: (4) T2DM (type 2 diabetes mellitus): (5) Fall: (6) Acute metabolic encephalopathy: (7) Pressure ulcer of left hip, unstageable: (8) Demand ischemia of myocardium: (9) Abnormal LFTs: Plan 84-year-old male with BPH, CKD, T2DM, obstructive sleep apnea on CPAP, and hypertension who presented after he was found on the ground at his home. Was likely on the ground for ~2 days. He had evidence of rhabdomyolysis and LLL pneumonia at time of admission. #Rhabdomyolysis - --CK initially 64273 --CK was 345 prior to discharge --Creatinine remained stable the entire hospitalization despite the rhabdomyolysis --Transaminitis may have been 2nd to rhabdomyolysis itself - AST/ALT normalized while here with supportive care #Atrial fibrillation - --Patient had new-onset atrial fibrillation on 07/28/24; fortunately he converted back to NSR on the same day --Initiated on metoprolol succinate for rate control - was 25mg BID, but had bradycardia with the BID dosing, thus dose was cut to 25mg daily --[id number] greater than 3 thus apixaban 5mg BID was started --Multiple provoking factors likely led to his a.fib including volume depletion, stress of illness, atrial tachycardia/PACs, etc --Echo this admission -- EF 55-60%. No valvular disease #Elevated troponin - --Peak Troponin 240 on admission - likely 2nd to myocardial demand ischemia in setting of his fall, rhabdomyolysis, LLL pneumonia, etc. --No evidence of ACS while here #Left lower lobe pneumonia - --As seen on chest x-ray --Treated with rocephin/doxycycline IV, then changed to cefdinir + doxycycline orally x 4 additional days --Will need repeat chest x-ray as outpatient in 4-6 weeks to ensure radiographic resolution --Blood & sputum cultures were negative while hospitalized #Acute metabolic encephalopathy - --The patient had no recollection of the approximate 2 days he spent on the floor at home prior to admission --The patient's reported that when she arrived from out of town she found the house in disarray --Due to the pt's amnesia of the event and the status of his house MRI brain was obtained --MRI brain was normal; no old or new stroke was seen; no ICH; no other acute abnormalities --Thus, his confusion was likely due to the LLL pneumonia #Abnormal LFTs - --Likely due to rhabdomyolysis --LFTs normalized while here #Hypomagnesemia - --Mag level 1.2 upon admission --Replaced, and level now normal Chronic stable issues - Type II DM: Metformin XR 500mg BID resumed at discharge; hemoglobin a1c was 8.5% in 05/2024 AMEE: continue CPAP at HS Hyperlipidemia: statin was held during the stay due to elevated LFTs; since the transaminitis was resolved his statin was resumed at hospital discharge HTN: HCTZ was held during the stay but resumed at discharge; metoprolol succinate 25mg was added primarily for a.fib but will serve as BP control as well; he will continue his enalapril BPH: continue finasteride GERD: continue PPI Hypokalemia: replaced and resolved Abdominal distension: had such during the stay; KUB xray without severe constipation or impaction; no ileus although his colon was top-normal from a gas standpoint on x-ray passed PT/OT evals and therefore was d/c to home with his Notes For Next Care Provider Repeat CXR in 4-6 weeks to ensure radiographic resolution of LLL pneumonia Medication Changes From Visit 1. added metoprolol succinate 25mg daily at HS 2. added Eliquis 5mg BID 3. cefdinir 300mg BID x 2 days 4. doxycycline 100mg BID x 2 days 5. metformin IR changed to metformin xr 500mg BID 6. added magnesium oxide 400mg daily Admission HPI Per Admitting Provider Patient is an 84-year-old male with past medical history of type II DM, BPH, CKD , hypertension, hyperlipidemia. He presented to the ED via EMS after a fall in which she was suspected to be on the ground for approximately 2 days. Patient's is not [facility] and was unable to contact the patient for 2 days. His neighbors went over and found him on the floor today and called EMS. Patient stated he did not fell but rather slid to the floor and was unable to get up for several days. Patient is alert and oriented on admission. He is being admitted after found to have rhabdomyolysis with a CK of 25,000. He also became hypoxic in the ED. Patient seen at bedside. Of note there was some confusion and that the patient was noted to be disoriented as he could not remember his name or birthdate, however patient's name is very similar to his and has a similar birthdate at the [facility]. Patient is completely alert and oriented on admission, does make several unrelated comments. he stated that he slid in the bathroom and did not fall, denies head strike. He stated he does have back pain. He typically ambulates without assistance at baseline a few falls in the past due to tripping over things. Patient denies headache, dizziness, lightheadedness, dyspnea,chest pain, abdominal pain, nausea, vomiting, numbness, tingling. He does not use nicotine products or frequently drink alcohol. He has not had his home medications in several days. He wishes to be full code. He does use CPAP at night for sleep apnea. Patient stated his family is aware that he is here, his brother in law is coming into town to visit him tomorrow. Discharge Exam gen - sitting in chair, NAD, looks well mouth - MMM; no obvious thrush neck - no JVD heart - irregular (extra beats), s1 s2, no murmur lungs - faint left lower lobe dry rales, otherwise CTA b/l; no wheeze abd - soft NT BS+; mildly distended; no peritoneal signs ext - no edema, pulses 2+ b/l neuro - strength 5/5 x 4 exts, speech fluent/clear, no facial droop psych - a/o x 3 Discharge Plan Discharge Items Patient Disposition: Home - Home Health Services Reason For Visit: FALL, RHABDOMYOLYSIS Discharge Diagnosis: 1. left lower lobe Pneumonia - resolving 2. rhabdomyolysis due to fall - resolved 3. new-onset atrial fibrillation 4. acute confusion - likely due to #1 - resolved; MRI brain negative/normal 5. high blood pressure 6. type 2 diabetes 7. sleep apnea - on CPAP 8. low magnesium level - resolved; due to chronic use of triamt erene/hydrochlorothiazide medicine; magnesium supplement advised Activity: As commented below Activity Comment: gradually increase activities over the next week as tolerated Non-emergency contact: Primary Care Provider Call non-emergency contact if: you have any medication questions, your symptoms worsen and you have a fever Follow-up/Referrals: Thu Thomas MD [Primary Care Provider] - 08/14/24 1:00 pm () Diet: Carb Consistent or DM2 Addtl Attending Provider Instructions: Mr Castro, You were hospitalized due to a presumed fall which led to you being unable to get up at home for at least 1-2 days. The fall with prolonged time on the floor led to a condition called "rhabdomyolysis" which is when your muscles get hurt temporarily. With rhabdomyolysis the muscle break-down products get released into the blood. IV fluids and time resolves a case of rhabdomyolysis. Your rhabdomyolysis did indeed fully resolve. The cause of your fall, weakness, and confusion was likely due to left lower lobe pneumonia as seen on 2 chest x-rays here. MRI brain was negative for stroke. Your pneumonia improved with IV antibiotics. Your stay was complicated by new-onset atrial fibrillation - also known as "a.fib" for short. See handouts. A.fib is very common, and illness often precipitates a.fib. A.fib can lead to heart failure (you do not have such) as well as increase the risk of stroke. To reduce the risk of stroke we started you on a blood thinner called "Eliquis." You were not in a.fib the entire stay; your heart went back to normal rhythm several days ago. However, you are at risk of having a.fib again in the future. Dr Brown can follow this condition over time. You will be receiving PT/OT services at home to help get you stronger during your recovery. Recommendations - 1. antibiotics for pneumonia - * cefdinir 300mg twice daily x 2 days, first dose tonight * doxycycline 100mg twice daily x 2 days, first dose tonight * most common side effect of these antibiotics - diarrhea * doxycycline can sometimes cause stomach upset/heartburn * doxycycline rarely can cause a rash if you go out in the sun for extended periods of time; thus, for the next few days, cover up well if you are outside 2. medicines for a.fib - * Eliquis blood thinner - 5mg twice daily * metoprolol succinate (this is also a blood pressure medicine) - 25mg once daily at bedtime 3. additional medicine changes - * STOP your immediate release metformin * START extended-release metformin XR - 500mg twice daily * the extended-release product tends to have less GI side effects in comparison to the immediate release form 4. please obtain a follow-up chest x-ray in 4-6 weeks to ensure all the pneumonia has resolved from the bottom of the left lung. Your family doctor can order this for you. 5. you may have another week or so of recovery at home from this illness. During the recovery period you may feel more tired than normal, etc. Gradually increase activities as tolerated. Follow-up - see Dr Thomas within 1 week Return to [facility] if - * you have fevers over 100 degrees * you have worsening diarrhea (3 or more liquid stools in 24 hours) * you have worsening shortness of breath or chest pains * you have severe dizziness or lightheadedness * any other concerns It was our pleasure to care for you! -Dr Kristine Randhawatl [place] Provider Instructions: Anticoagulant (Blood Thinner) Medication Instructions: Your a.fib condition is typically treated with an anticoagulant. Anticoagulants will thin your blood to help prevent clots from forming in the heart. Your blood thinner is ELIQUIS. * You should take your medication exactly as directed. * Never skip a dose. * Never take a double dose. If you miss a dose, take it as soon as you remember. Call your Primary Care doctor if you experience any of the following: * Chest Pain * Sudden Shortness of Breath * Rapid or pounding heart beat * Fainting * Dizziness * Cough with blood or bloody sputum * Sweating more than normal * Bruises * Heavy or uncontrolled bleeding * Blood in your urine, stool or vomit * Black or tarry stools * Heavy nose bleeding Caring for Your Self at Home: * avoid activities that increase the risk of bleeding (using a chainsaw, operating heavy equipment, etc) * when shaving use an electric shaver rather than a traditional razor blade (less risk of cuts & bleeding) Pending Studies at Discharge: No Stand-Alone Forms: My [facility], Smoking Cessation Medications and DC Order Prescriptions: New metformin 500 mg tablet extended release 24 hr 500 mg PO BID Qty: 60 0RF Eliquis 5 mg Tablet 5 mg PO BID Qty: 60 5RF metoprolol succinate 25 mg Tablet Extended Release 24 Hr 25 mg PO HS Qty: 30 5RF magnesium oxide 400 mg magnesium tablet 400 mg PO DAILY Qty: 30 5RF Continued aspirin 81 mg Tablet,Delayed Release (Dr/Ec) 81 mg PO DAILY atorvastatin 40 mg Tablet 40 mg PO PM enalapril maleate 5 mg Tablet 5 mg PO DAILY triamterene-hydrochlorothiazid 37.5-25 mg Tablet 0.5 tab PO DAILY omeprazole 20 mg Capsule,Delayed Release(Dr/Ec) 20 mg PO QPM diphenhydramine-acetaminophen [Tylenol PM Extra Strength] 25-500 mg Tablet 2 tab PO HS PRN (Reason: Sleep) finasteride 5 mg Tablet 5 mg PO DAILY cholecalciferol (vitamin D3) [Vitamin D3] 25 mcg (1,000 unit) Capsule 25 mcg PO QDL brimonidine-timolol 0.2-0.5 % Drops 1 drp OPHTHALMIC (EYE) BID bimatoprost 0.01 % Drops 1 drp OPHTHALMIC (EYE) HS psyllium husk 3 gram/5.4 gram Powder 1 tsp PO QPM Rx Instructions: mix into at least 4 oz water or juice before administering Discontinued metformin 500 mg Tablet 500 mg PO BID Discharge Orders: Discharge Order (Routine); Ordered 08/01/24 Ordered By: Renny Coelho/Other Patient Handouts: Apixaban Oral Tablet, Rhabdomyolysis, AFib Preventing Stroke, AFib Admission Data Admit Date/Time: 07/26/24 01:27 Attending Provider: Renny Carmona Admit Provider: Blane Barrett Primary Care Provider: Thu Thomas Other Providers: [facility] Other Interventions: Discharge Summary Assessment (RN) Last Done: 08/01/24 10:47 Hospital Stay Data Consultations PT, OT Procedures Performed Echocardiogram: EF 55-60% severe LVH mild-moderate mitral regurgitation no LV wall motion abnormalities patient was in a.fib during the echo Diagnostic Imagining Performed Chest X-Ray 07/25/24 22:30 CR Exam(s): XR CXR 1 VIEW EXAM: XR Chest, 1 View CLINICAL HISTORY: Reason for exam: hypoxia, fall. TECHNIQUE: Frontal view of the chest. COMPARISON: No relevant prior studies available. FINDINGS: Lungs: Moderate peribronchial thickening of the central and lower lobe bronchi with patchy opacity at the left lung base. No consolidation. Pleural space: Unremarkable. No pneumothorax. Heart: Small left pleural effusion. No cardiomegaly. Mediastinum: Unremarkable. Normal mediastinal contour. Bones/joints: Unremarkable. No acute fracture. IMPRESSION: Left lower lobe infiltrate with small pleural effusion. Communications: Verify Receipt Electronically signed by: Shy Burgess MD 07/26/24 01:[address] 07/25/24 22:30 Exam(s): CT HEAD Without Contrast EXAM: CT Head Without Intravenous Contrast CLINICAL HISTORY: Reason for exam: AMS, fall. TECHNIQUE: Axial computed tomography images of the head/brain without intravenous contrast. CTDI is 38.31 mGy and DLP is 625.8 mGy-cm. Automated exposure control was utilized for the study. A dose lowering technique was utilized adhering to the principles of ALARA. COMPARISON: No relevant prior studies available. FINDINGS: The study is limited secondary to motion artifact. Brain: Unremarkable. No hemorrhage. Moderate nonspecific white matter changes.. No edema. Ventricles: Unremarkable. No ventriculomegaly. Bones/joints: Unremarkable. No acute fracture. Soft tissues: Unremarkable. Sinuses: Unremarkable as visualized. No acute sinusitis. Mastoid air cells: Unremarkable as visualized. No mastoid effusion. IMPRESSION: No evidence of acute intracranial pathology. Electronically signed by: Shy Burgess MD 07/26/24 01:16 AM Chest X-Ray 07/26/24 10:01 XR chest 1V portable CLINICAL HISTORY: pulm edema eval COMPARISON STUDY: 07/25/2024 FINDINGS: No significant interval change has occurred. Small left pleural effusion and patchy left basilar infiltrate or persistent. No new or adverse change is identified elsewhere. Right lung remains clear. IMPRESSION: Stable exam demonstrating small left pleural effusion and small, patchy left basilar infiltrate. ACT 112: Negative or not required by law. Electronically signed by: Ifrah Delacruz M.D. 07/26/2024 10:29 AM Abdomen X-Ray 07/30/24 12:32 EXAMINATION: X-ray abdomen minimum 2 view CLINICAL HISTORY: Early satiety abdominal distention PRIORS: None TECHNIQUE: Upright and supine AP abdomen images are submitted. FINDINGS: Overlying bowel gas and stool obscures fine bone detail. A small amount of formed stool present throughout the colon. No dilated loops of bowel. No air-fluid levels. No acute osseous abnormality. IMPRESSION: Small amount of formed stool throughout the colon with nondilated, nonobstructed bowel gas pattern Electronically signed by Yeni Pritchett 07-30-2024 4:51 PM Brain MRI 07/31/24 15:04 Exam(s): MRI HEAD Without Contrast EXAM: MR Head Without Intravenous Contrast CLINICAL HISTORY: Reason for exam: recent falls, altered MS, a.fib; r/o CVA. TECHNIQUE: Magnetic resonance images of the head/brain without intravenous contrast in multiple planes. COMPARISON: CT July 25, 2024. FINDINGS: Brain: Extensive patchy areas of increased signal in the white matter on FLAIR and T2-weighted sequences. These are nonspecific but usually due to chronic, small vessel ischemic change. No acute edema, hemorrhage or abnormal mass-effect. No restricted diffusion to indicate acute infarct. Ventricles: Unremarkable. No ventriculomegaly. Bones/joints: Unremarkable. No acute fracture. Sinuses: Unremarkable as visualized. No acute sinusitis. Mastoid air cells: Unremarkable as visualized. No mastoid effusion. Orbits: Unremarkable as visualized. IMPRESSION: No acute findings in the head/brain. Electronically signed by: Juanito Mitchell MD 07/31/24 23:10 PM Pending Results Patient Have Any Pending Studies at Discharge: No Discharge Instructions Given to Patient (Per Discharging Provider) Mr Castro, Stephon were hospitalized due to a presumed fall which led to you being unable to get up at home for at least 1-2 days. The fall with prolonged time on the floor led to a condition called "rhabdomyolysis" which is when your muscles get hurt temporarily. With rhabdomyolysis the muscle break-down products get released into the blood. IV fluids and time resolves a case of rhabdomyolysis. Your rhabdomyolysis did indeed fully resolve. The cause of your fall, weakness, and confusion was likely due to left lower lobe pneumonia as seen on 2 chest x-rays here. MRI brain was negative for stroke. Your pneumonia improved with IV antibiotics. Your stay was complicated by new-onset atrial fibrillation - also known as "a.fib" for short. See handouts. A.fib is very common, and illness often precipitates a.fib. A.fib can lead to heart failure (you do not have such) as well as increase the risk of stroke. To reduce the risk of stroke we started you on a blood thinner called "Eliquis." You were not in a.fib the entire stay; your heart went back to normal rhythm several days ago. However, you are at risk of having a.fib again in the future. Dr Brown can follow this condition over time. You will be receiving PT/OT services at home to help get you stronger during you r recovery. Recommendations - 1. antibiotics for pneumonia - * cefdinir 300mg twice daily x 2 days, first dose tonight * doxycycline 100mg twice daily x 2 days, first dose tonight * most common side effect of these antibiotics - diarrhea * doxycycline can sometimes cause stomach upset/heartburn * doxycycline rarely can cause a rash if you go out in the sun for extended periods of time; thus, for the next few days, cover up well if you are outside 2. medicines for a.fib - * Eliquis blood thinner - 5mg twice daily * metoprolol succinate (this is also a blood pressure medicine) - 25mg once daily at bedtime 3. additional medicine changes - * STOP your immediate release metformin * START extended-release metformin XR - 500mg twice daily * the extended-release product tends to have less GI side effects in comparison to the immediate release form 4. please obtain a follow-up chest x-ray in 4-6 weeks to ensure all the pneumonia has resolved from the bottom of the left lung. Your family doctor can order this for you. 5. you may have another week or so of recovery at home from this illness. During the recovery period you may feel more tired than normal, etc. Gradually increase activities as tolerated. Follow-up - see Dr Thomas within 1 week Return to [facility] if - * you have fevers over 100 degrees * you have worsening diarrhea (3 or more liquid stools in 24 hours) * you have worsening shortness of breath or chest pains * you have severe dizziness or lightheadedness * any other concerns It was our pleasure to care for you! -Dr Carmona Total Time Total Time Spent Total Time Spent (In Minutes): 45 Coding Level of Care Code 22212 INP/OBS DISCH >30 MIN Diagnoses Rhabdomyolysis M62.82 Pneumonia J18.9 Hypomagnesemia E83.42 T2DM (type 2 diabetes mellitus) E11.9 Fall W19.XXXA Acute metabolic encephalopathy G93.41 Pressure ulcer of left hip, unstageable L89.220 Demand ischemia of myocardium I24.89 Abnormal LFTs R79.89
[2024-08-01 11:18] VITALS: BP 136/68; PULSE 53; TEMP 98.2; O2SAT 92
== END 2024-08-01 12:22 | disposition home health service (06) | DRG 193 ==
LOC: EDBD → ED 21:51 → SUATTDRO 07-26 01:27 → 2N 07-26 01:27 → MERGE 07-26 01:27 → 2N 07-26 02:23